=== PATIENT | female | born 1945 | race Caucasian/White ===

== ENCOUNTER 2018-04-13 01:23 | Inpatient (IN) ==
[2018-04-13 01:39] LABS: Baso # (Auto) 0.1 th/mm3 (0.0-0.2); Baso % (Auto) 0.8 % (0.0-2.0); Hemoglobin 12.7 gm/dL (11.6-15.3); Lymph # (Auto) 0.7 th/mm3 (1.0-4.8); Lymph % (Auto) 8.8 % (9.0-44.0); Mean Corpuscular HGB Conc 35.1 % (32.0-36.0); Mean Corpuscular Hemoglobin 40.4 pg (27.0-34.0); Mean Corpuscular Volume 115.2 fL (80.0-100.0); Mean Platelet Volume 8.2 fL (7.0-11.0); Mono # (Auto) 0.7 th/mm3 (0.0-0.9); Mono % (Auto) 7.8 % (0.0-8.0); Neut % (Auto) 82.6 % (16.0-70.0); Platelet Count 145 th/mm3 (150-450); Red Blood Count 3.13 mil/mm3 (4.00-5.30); Red Cell Distribution Width 16.3 % (11.6-17.2); White Blood Count 8.5 th/mm3 (4.0-11.0)
[2018-04-13] MEDS: Sod Chloride 0.9% Inj 1,000 ML IV.CONT SCH ×2 (01:46→15:08)
--- NOTE | 2018-04-13 01:47 | XR ---
EXAM DATE: 04/13/2018 1:43 AM EST AGE/SEX: 72 years / Female INDICATIONS: altered mental status, possible stroke. CLINICAL DATA: This is the patient's initial encounter. Patient reports that signs and symptoms have been present for 1 day and indicates a pain score of Nonresponsive. MEDICAL/SURGICAL HISTORY: Non-responsive. Non-responsive. COMPARISON: No prior exams available for comparison. FINDINGS: A single AP view of the chest demonstrates the lungs to be symmetrically aerated without evidence of mass, infiltrate or effusion. The cardiomediastinal contours are unremarkable. Osseous structures a re intact. Large hiatal hernia. CONCLUSION: Unremarkable single view the chest. Large hiatal hernia. Electronically signed by: Flako Funes MD 04/13/2018 1:46 AM EST
[2018-04-13 01:50] LABS: Activated Partial Thrombo Time 23.8 sec (23.4-31.7); Prothrombin Time 10.6 sec (9.8-11.6)
--- NOTE | 2018-04-13 01:53 | ED ---
HPI General Chief Complaint: Stroke Alert Stated Complaint: Stroke Alert Time Seen by Provider: 04/13/18 01:28 Source: EMS Mode of arrival: EMS Limitations: altered mental status History of Present Illness HPI Narrative: 72-year-old female came to the emergency room with history of speech problems since early afternoon yesterday as per the . However 1 hour prior to EMS arrival is when she started having difficulty speaking. EMS called a stroke alert at the field given her aphasia. Patient is awake but looks confused. She is not following commands and based on this and extremely poor historian. The exact time of onset of her speech issue is unknown at this point. It sounds like it was growing for a few hours since the early afternoon yesterday. Patient was hypertensive upon arrival. She did not appear in any pain or distress. Related Data Home Medications Medication Instructions Recorded Confirmed buspirone 5 mg PO TID 04/13/18 04/13/18 conjugated estrogens [Premarin] 0.625 mg PO DAILY 04/13/18 04/13/18 omeprazole 20 mg PO DAILY 04/13/18 04/13/18 quetiapine 50 mg PO HS 04/13/18 04/13/18 rosuvastatin 20 mg PO DAILY 04/13/18 04/13/18 Allergies Allergy/AdvReac Type Severity Reaction Status Date / Time Sulfa (Sulfonamide Allergy Unknown Rash, Verified 04/14/18 10:57 Antibiotics) Generalized Review of Systems ROS Unobtainable ROS Unobtainable: unobtainable due to mental status ROS: all other systems reviewed are negative [facility] Medical History Medical History GERD (gastroesophageal reflux disease) (Acute) High cholesterol (Acute) Social History Social History Substance History: No History of Abuse Second Hand Smoke Exposure: No Smoking Status: Never smoker How Often Do You Have a Drink Containing Alcohol: 4 or more times a week Recent Travel in [facility] within the Last 8 Weeks: No Recent Out of Country Travel within the Last 8 Weeks: No Immunization History Tetanus Immunization: Unable to Assess Exam Narrative Exam Narrative: GENERAL: Awake, elderly, confused, disheveled, no obvious distress SKIN: Focused skin assessment warm/dry. HEAD: Atraumatic. Normocephalic. EYES: Pupils equal and round. No scleral icterus. No injection or drainage. ENT: No nasal bleeding or discharge. Mucous membranes pink and moist. NECK: Trachea midline. No JVD. CARDIOVASCULAR: Regular rate and rhythm. No murmur appreciated. RESPIRATORY: No accessory muscle use. Clear to auscultation. Breath sounds equal bilaterally. GASTROINTESTINAL: Abdomen soft, non-tender, nondistended. Hepatic and splenic margins not palpable. MUSCULOSKELETAL: No obvious deformities. No clubbing. No cyanosis. No edema. NEUROLOGICAL: Confused, few occasional words that are out of context with clear speech, not following commands, moving all 4 extremities with equal strength. Based on this the NIH stroke score is 6. PSYCHIATRIC: Appropriate mood and affect; insight and judgment normal. Course Initial Documented Vital Signs Pulse Oximetry 98 04/13/18 01:23 Last Documented Vital Signs Temperature 97.8 F 04/15/18 00:00 Pulse Rate 94 H 04/15/18 00:00 Respiratory Rate 20 04/15/18 00:00 Blood Pressure 151/71 H 04/15/18 00:00 Pulse Oximetry 96 04/15/18 00:00 Critical Care Time Critical Care Time: Yes Total Critical Care Time: 30 Attestation: Aggregate critical care time was 30 minutes. Time to perform other separately billable procedures was not included in the critical care time. My time did not include minutes spent treating any other patients simultaneously or on activities that did not directly contribute to the patient's treatment. The services I provided to this patient were to treat and/or prevent clinically significant deterioration that could result in: Stroke alert, sepsis, sepsis protocol I provided critical care services requiring my management, as noted below: Chart data review, documentation time, medication orders and management, vital sign assessments/reviewing monitor data, ordering and reviewing lab tests, ordering and interpreting/reviewing x-rays and diagnostic studies, care of the patient and discussion of the patient with the admitting physicians. NIH Stroke Scale NIH Stroke Scale Level of Consciousness: 0-Alert Orientation Questions: 2-Neither task correct Responds to Commands: 2-Neither task correct Gaze Eye Movement: 0-Horizontal movement WNL Visual Marsh: 0-No visual field defect Facial Movement: 0-Normal Motor Functions Arm LEFT: 0-No drift Motor Functions Arm RIGHT: 0-No drift Motor Functions Leg LEFT: 0-No drift Motor Functions Leg RIGHT: 0-No drift Limb Ataxia: 0-No ataxia Sensory Loss: 0-No sensory loss Best Language: 2-Severe aphasia Articulation: 0-Normal Extinction or Inattention Sensory: 0-Absent Total: 6 Medical Decision Making MDM Narrative Medical decision making narrative: 1:52 AM stroke alert was called based on the on the field stroke alert is called by EMS. After patient's arrival and examining her I discussed with Dr. St who is on-call for neurology. Given the fact that this has been going on for more than 6 hours she does not meet TPA criteria. He agreed with the CAT scan and CTA at this point and based on the result admission and then neurology consultation. Patient is over at CT. Awaiting for the test to be done and resulted. 2:[address] scan of the brain was negative. The CTA is suggestive of slightly less perfusion in the left MCA territory compared to the right without any obvious stenosis. Have ordered for 325 mg of aspirin. Patient will be admitted. Lactic acid was elevated to 3.1. UA is pending. I will order a dose of Zosyn and vancomycin to cover for sepsis for the time being. 2:53 AM that has been just came in and has provided valuable descriptive information. He says that yesterday entire afternoon she was having slurred speech. At night before calling EMS he noticed that she was shaking and looked like she was having a seizure. He also says that patient has been drinking substantially for past few weeks. She drinks a bottle of wine at least a day. She has also been abusing her BuSpar as per him. He withheld her alcohol as of yesterday and she has not had more than 1-2 glasses of wine. Also she was admitted for the exact same reason which was slurred speech about a month back in [place]. They have moved down from [place] few days ago. As per the they had run all kinds of tests and they were all within normal limits. Patient was diagnosed with TIA prior to her discharge. Given this information there is a possibility that patient had a withdrawal seizure from alcohol. The is quite concerned about her drinking habit and would like some help. I have let the hospitalist know about this. Medical Screen Exam Complete: Yes Emergency Medical Condition: Yes Lab Data Result diagrams: 04/14/18 10:05 04/14/18 10:05 Lab Results 11/17/18 11/17/18 11/17/18 Range/Units 01:31 01:31 01:31 WBC 8.5 (4.0-11.0) th/mm3 RBC 3.13 L (4.00-5.30) mil/mm3 Hgb 12.7 (11.6-15.3) gm/dL POC Hgb (Calc) 13.3 (11.6-15.3) g/dL Hct 36.0 (35.0-46.0) % POC Hct 39.0 (35-46.0) % MCV 115.2 H (80.0-100.0) fL MCH 40.4 H (27.0-34.0) pg MCHC 35.1 (32.0-36.0) % RDW 16.3 (11.6-17.2) % Plt Count 145 L (150-450) th/mm3 MPV 8.2 (7.0-11.0) fL Neut % (Auto) 82.6 H (16.0-70.0) % Lymph % (Auto) 8.8 L (9.0-44.0) % [place] % (Auto) 7.8 (0.0-8.0) % Eos % (Auto) 0.0 (0.0-4.0) % Baso % (Auto) 0.8 (0.0-2.0) % Neut # (Auto) 7.0 (1.8-7.7) th/mm3 Lymph # (Auto) 0.7 L (1.0-4.8) th/mm3 [place] # (Auto) 0.7 (0.0-0.9) th/mm3 Eos # (Auto) 0.0 (0.0-0.4) th/mm3 Baso # (Auto) 0.1 (0.0-0.2) th/mm3 WBC Differential . Differential Comment Auto diff final ESR (0-30) mm/hr PT 10.6 (9.8-11.6) sec INR 1.0 Ratio APTT 23.8 (23.4-31.7) sec Fibrinogen 341 (227-377) mg/dL POC Sodium 130 L (137-144) mmol/L Sodium (136-145) meq/L POC Potassium 4.4 (3.6-5.0) mmol/L Potassium (3.5-5.1) meq/L POC Chloride 92 L (102-111) mmol/L Chloride (98-107) meq/L Carbon Dioxide (21.0-32.0) meq/L Anion Gap (5-15) meq/L POC BUN 13 (5-21) mg/dL BUN (7-18) mg/dL Creatinine (0.50-1.00) mg/dL POC Creatinine 0.9 (0.6-1.3) mg/dL Estimated GFR (>89) mL/min POC Glucose 146 H (68-110) mg/dL Random Glucose (74-106) mg/dL Hemoglobin A1c (4.3-6.0) % Lactic Acid (0.4-2.0) mmol/L Calcium (8.5-10.1) mg/dL Magnesium (1.5-2.5) mg/dL Total Bilirubin (0.2-1.0) mg/dL AST (15-37) U/L ALT (10-53) U/L Alkaline Phosphatase (45-117) U/L Ammonia (11-32) mcmol/L Total Creatine Kinase 82 (26-192) U/L Troponin I Less than 0.02 L (0.02-0.05) ng/mL C-Reactive Protein (0.00-0.30) mg/dL Total Protein (6.4-8.2) g/dL Albumin (3.4-5.0) g/dL Triglycerides (42-150) mg/dL Cholesterol (120-200) mg/dL LDL Cholesterol, Calc (0-99) mg/dL HDL Cholesterol (40.0-60.0) mg/dL Cholesterol/HDL Ratio Ratio Vitamin B12 (193-986) pg/mL TSH (0.358-3.740) uIU/mL Beta HCG, Quant Less than 1 (0-5) mIU/mL Urine Color (Yellw/Straw) Urine Clarity (Clear) Urine pH (5.0-8.5) Ur Specific [place] (1.002-1.035) Urine Protein (Neg-Trace) mg/dL Urine Glucose (UA) (Negative) mg/dL Urine Ketones (Negative) mg/dL Urine Occult Blood (Negative) Urine Nitrate (Negative) Urine Bilirubin (Negative) Urine Urobilinogen (Less than 2) mg/dL Ur Leukocyte Esterase (Negative) Urine RBC (0-3) /hpf Ur Squamous Epith Cells (0-5) /hpf Urine Mucus (Occasional) /lpf Micro UA Comment Ur Microscopic Review Urine Culture Comments Urine Opiates Screen (Neg) Ur Barbiturates Screen (Neg) Ur Amphetamines Screen (Neg) U Benzodiazepines Scrn (Neg) Urine Cocaine Screen (Neg) U Cannabinoids Screen (Neg) Serum Alcohol Less than 3 (0-5) mg/dL Blood Type Blood Type Recheck Antibody Screen 04/13/18 04/13/18 04/13/18 Range/Units 01:31 01:42 01:42 WBC (4.0-11.0) th/mm3 RBC (4.00-5.30) mil/mm3 Hgb (11.6-15.3) gm/dL POC Hgb (Calc) (11.6-15.3) g/dL Hct (35.0-46.0) % POC Hct (35-46.0) % MCV (80.0-100.0) fL MCH (27.0-34.0) pg MCHC (32.0-36.0) % RDW (11.6-17.2) % Plt Count (150-450) th/mm3 MPV (7.0-11.0) fL Neut % (Auto) (16.0-70.0) % Lymph % (Auto) (9.0-44.0) % [place] % (Auto) (0.0-8.0) % Eos % (Auto) (0.0-4.0) % Baso % (Auto) (0.0-2.0) % Neut # (Auto) (1.8-7.7) th/mm3 Lymph # (Auto) (1.0-4.8) th/mm3 [place] # (Auto) (0.0-0.9) th/mm3 Eos # (Auto) (0.0-0.4) th/mm3 Baso # (Auto) (0.0-0.2) th/mm3 WBC Differential Differential Comment ESR (0-30) mm/hr PT (9.8-11.6) sec INR Ratio APTT (23.4-31.7) sec Fibrinogen (227-377) mg/dL POC Sodium (137-144) mmol/L Sodium (136-145) meq/L POC Potassium (3.6-5.0) mmol/L Potassium (3.5-5.1) meq/L POC Chloride (102-111) mmol/L Chloride (98-107) meq/L Carbon Dioxide (21.0-32.0) meq/L Anion Gap (5-15) meq/L POC BUN (5-21) mg/dL BUN (7-18) mg/dL Creatinine (0.50-1.00) mg/dL POC Creatinine (0.6-1.3) mg/dL Estimated GFR (>89) mL/min POC Glucose (68-110) mg/dL Random Glucose (74-106) mg/dL Hemoglobin A1c (4.3-6.0) % Lactic Acid 3.1 H (0.4-2.0) mmol/L Calcium (8.5-10.1) mg/dL Magnesium (1.5-2.5) mg/dL Total Bilirubin (0.2-1.0) mg/dL AST (15-37) U/L ALT (10-53) U/L Alkaline Phosphatase (45-117) U/L Ammonia (11-32) mcmol/L Total Creatine Kinase (26-192) U/L Troponin I (0.02-0.05) ng/mL C-Reactive Protein (0.00-0.30) mg/dL Total Protein (6.4-8.2) g/dL Albumin (3.4-5.0) g/dL Triglycerides (42-150) mg/dL Cholesterol (120-200) mg/dL LDL Cholesterol, Calc (0-99) mg/dL HDL Cholesterol (40.0-60.0) mg/dL Cholesterol/HDL Ratio Ratio Vitamin B12 (193-986) pg/mL TSH (0.358-3.740) uIU/mL Beta HCG, Quant (0-5) mIU/mL Urine Color (Yellw/Straw) Urine Clarity (Clear) Urine pH (5.0-8.5) Ur Specific [place] (1.002-1.035) Urine Protein (Neg-Trace) mg/dL Urine Glucose (UA) (Negative) mg/dL Urine Ketones (Negative) mg/dL Urine Occult Blood (Negative) Urine Nitrate (Negative) Urine Bilirubin (Negative) Urine Urobilinogen (Less than 2) mg/dL Ur Leukocyte Esterase (Negative) Urine RBC (0-3) /hpf Ur Squamous Epith Cells (0-5) /hpf Urine Mucus (Occasional) /lpf Micro UA Comment Ur Microscopic Review Urine Culture Comments Urine Opiates Screen (Neg) Ur Barbiturates Screen (Neg) Ur Amphetamines Screen (Neg) U Benzodiazepines Scrn (Neg) Urine Cocaine Screen (Neg) U Cannabinoids Screen (Neg) Serum Alcohol Cancelled (0-5) mg/dL Blood Type O Positive Blood Type Recheck Required Antibody Screen Negative 04/13/18 04/13/18 04/13/18 Range/Units 02:10 02:10 06:31 WBC (4.0-11.0) th/mm3 RBC (4.00-5.30) mil/mm3 Hgb (11.6-15.3) gm/dL POC Hgb (Calc) (11.6-15.3) g/dL Hct (35.0-46.0) % POC Hct (35-46.0) % MCV (80.0-100.0) fL MCH (27.0-34.0) pg MCHC (32.0-36.0) % RDW (11.6-17.2) % Plt Count (150-450) th/mm3 MPV (7.0-11.0) fL Neut % (Auto) (16.0-70.0) % Lymph % (Auto) (9.0-44.0) % [place] % (Auto) (0.0-8.0) % Eos % (Auto) (0.0-4.0) % Baso % (Auto) (0.0-2.0) % Neut # (Auto) (1.8-7.7) th/mm3 Lymph # (Auto) (1.0-4.8) th/mm3 [place] # (Auto) (0.0-0.9) th/mm3 Eos # (Auto) (0.0-0.4) th/mm3 Baso # (Auto) (0.0-0.2) th/mm3 WBC Differential Differential Comment ESR (0-30) mm/hr PT (9.8-11.6) sec INR Ratio APTT (23.4-31.7) sec Fibrinogen (227-377) mg/dL POC Sodium (137-144) mmol/L Sodium (136-145) meq/L POC Potassium (3.6-5.0) mmol/L Potassium (3.5-5.1) meq/L POC Chloride (102-111) mmol/L Chloride (98-107) meq/L Carbon Dioxide (21.0-32.0) meq/L Anion Gap (5-15) meq/L POC BUN (5-21) mg/dL BUN (7-18) mg/dL Creatinine (0.50-1.00) mg/dL POC Creatinine (0.6-1.3) mg/dL Estimated GFR (>89) mL/min POC Glucose 160 H (68-110) mg/dL Random Glucose (74-106) mg/dL Hemoglobin A1c (4.3-6.0) % Lactic Acid (0.4-2.0) mmol/L Calcium (8.5-10.1) mg/dL Magnesium (1.5-2.5) mg/dL Total Bilirubin (0.2-1.0) mg/dL AST (15-37) U/L ALT (10-53) U/L Alkaline Phosphatase (45-117) U/L Ammonia (11-32) mcmol/L Total Creatine Kinase (26-192) U/L Troponin I (0.02-0.05) ng/mL C-Reactive Protein (0.00-0.30) mg/dL Total Protein (6.4-8.2) g/dL Albumin (3.4-5.0) g/dL Triglycerides (42-150) mg/dL Cholesterol (120-200) mg/dL LDL Cholesterol, Calc (0-99) mg/dL HDL Cholesterol (40.0-60.0) mg/dL Cholesterol/HDL Ratio Ratio Vitamin B12 (193-986) pg/mL TSH (0.358-3.740) uIU/mL Beta HCG, Quant (0-5) mIU/mL Urine Color Yellow (Yellw/Straw) Urine Clarity Clear (Clear) Urine pH 7.0 (5.0-8.5) Ur Specific [place] 1.038 H (1.002-1.035) Urine Protein 100 H (Neg-Trace) mg/dL Urine Glucose (UA) 50 (Negative) mg/dL Urine Ketones 20 (Negative) mg/dL Urine Occult Blood Negative (Negative) Urine Nitrate Negative (Negative) Urine Bilirubin Negative (Negative) Urine Urobilinogen 2.0 H (Less than 2) mg/dL Ur Leukocyte Esterase Negative (Negative) Urine RBC Less than 1 (0-3) /hpf Ur Squamous Epith Cells 1 (0-5) /hpf Urine Mucus Few H (Occasional) /lpf Micro UA Comment Cath-culture not ind Ur Microscopic Review Not Reportable Urine Culture Comments Cath-cult not ind Urine Opiates Screen Neg (Neg) Ur Barbiturates Screen Neg (Neg) Ur Amphetamines Screen Neg (Neg) U Benzodiazepines Scrn Neg (Neg) Urine Cocaine Screen Neg (Neg) U Cannabinoids Screen Neg (Neg) Serum Alcohol (0-5) mg/dL Blood Type Blood Type Recheck Antibody Screen 04/13/18 04/13/18 04/13/18 Range/Units 08:12 08:14 11:51 WBC (4.0-11.0) th/mm3 RBC (4.00-5.30) mil/mm3 Hgb (11.6-15.3) gm/dL POC Hgb (Calc) (11.6-15.3) g/dL Hct (35.0-46.0) % POC Hct (35-46.0) % MCV (80.0-100.0) fL MCH (27.0-34.0) pg MCHC (32.0-36.0) % RDW (11.6-17.2) % Plt Count (150-450) th/mm3 MPV (7.0-11.0) fL Neut % (Auto) (16.0-70.0) % Lymph % (Auto) (9.0-44.0) % [place] % (Auto) (0.0-8.0) % Eos % (Auto) (0.0-4.0) % Baso % (Auto) (0.0-2.0) % Neut # (Auto) (1.8-7.7) th/mm3 Lymph # (Auto) (1.0-4.8) th/mm3 [place] # (Auto) (0.0-0.9) th/mm3 Eos # (Auto) (0.0-0.4) th/mm3 Baso # (Auto) (0.0-0.2) th/mm3 WBC Differential Differential Comment ESR (0-30) mm/hr PT (9.8-11.6) sec INR Ratio APTT (23.4-31.7) sec Fibrinogen (227-377) mg/dL POC Sodium (137-144) mmol/L Sodium (136-145) meq/L POC Potassium (3.6-5.0) mmol/L Potassium (3.5-5.1) meq/L POC Chloride (102-111) mmol/L Chloride (98-107) meq/L Carbon Dioxide (21.0-32.0) meq/L Anion Gap (5-15) meq/L POC BUN (5-21) mg/dL BUN (7-18) mg/dL Creatinine (0.50-1.00) mg/dL POC Creatinine (0.6-1.3) mg/dL Estimated GFR (>89) mL/min POC Glucose 131 H 119 H (68-110) mg/dL Random Glucose (74-106) mg/dL Hemoglobin A1c (4.3-6.0) % Lactic Acid 1.8 (0.4-2.0) mmol/L Calcium (8.5-10.1) mg/dL Magnesium (1.5-2.5) mg/dL Total Bilirubin (0.2-1.0) mg/dL AST (15-37) U/L ALT (10-53) U/L Alkaline Phosphatase (45-117) U/L Ammonia (11-32) mcmol/L Total Creatine Kinase (26-192) U/L Troponin I (0.02-0.05) ng/mL C-Reactive Protein (0.00-0.30) mg/dL Total Protein (6.4-8.2) g/dL Albumin (3.4-5.0) g/dL Triglycerides (42-150) mg/dL Cholesterol (120-200) mg/dL LDL Cholesterol, Calc (0-99) mg/dL HDL Cholesterol (40.0-60.0) mg/dL Cholesterol/HDL Ratio Ratio Vitamin B12 (193-986) pg/mL TSH (0.358-3.740) uIU/mL Beta HCG, Quant (0-5) mIU/mL Urine Color (Yellw/Straw) Urine Clarity (Clear) Urine pH (5.0-8.5) Ur Specific [place] (1.002-1.035) Urine Protein (Neg-Trace) mg/dL Urine Glucose (UA) (Negative) mg/dL Urine Ketones (Negative) mg/dL Urine Occult Blood (Negative) Urine Nitrate (Negative) Urine Bilirubin (Negative) Urine Urobilinogen (Less than 2) mg/dL Ur Leukocyte Esterase (Negative) Urine RBC (0-3) /hpf Ur Squamous Epith Cells (0-5) /hpf Urine Mucus (Occasional) /lpf Micro UA Comment Ur Microscopic Review Urine Culture Comments Urine Opiates Screen (Neg) Ur Barbiturates Screen (Neg) Ur Amphetamines Screen (Neg) U Benzodiazepines Scrn (Neg) Urine Cocaine Screen (Neg) U Cannabinoids Screen (Neg) Serum Alcohol (0-5) mg/dL Blood Type Blood Type Recheck Antibody Screen 04/13/18 04/13/18 04/13/18 Range/Units 14:03 14:03 14:03 WBC (4.0-11.0) th/mm3 RBC (4.00-5.30) mil/mm3 Hgb (11.6-15.3) gm/dL POC Hgb (Calc) (11.6-15.3) g/dL Hct (35.0-46.0) % POC Hct (35-46.0) % MCV (80.0-100.0) fL MCH (27.0-34.0) pg MCHC (32.0-36.0) % RDW (11.6-17.2) % Plt Count (150-450) th/mm3 MPV (7.0-11.0) fL Neut % (Auto) (16.0-70.0) % Lymph % (Auto) (9.0-44.0) % [place] % (Auto) (0.0-8.0) % Eos % (Auto) (0.0-4.0) % Baso % (Auto) (0.0-2.0) % Neut # (Auto) (1.8-7.7) th/mm3 Lymph # (Auto) (1.0-4.8) th/mm3 [place] # (Auto) (0.0-0.9) th/mm3 Eos # (Auto) (0.0-0.4) th/mm3 Baso # (Auto) (0.0-0.2) th/mm3 WBC Differential Differential Comment ESR 31 H (0-30) mm/hr PT (9.8-11.6) sec INR Ratio APTT (23.4-31.7) sec Fibrinogen (227-377) mg/dL POC Sodium (137-144) mmol/L Sodium (136-145) meq/L POC Potassium (3.6-5.0) mmol/L Potassium (3.5-5.1) meq/L POC Chloride (102-111) mmol/L Chloride (98-107) meq/L Carbon Dioxide (21.0-32.0) meq/L Anion Gap (5-15) meq/L POC BUN (5-21) mg/dL BUN (7-18) mg/dL Creatinine (0.50-1.00) mg/dL POC Creatinine (0.6-1.3) mg/dL Estimated GFR (>89) mL/min POC Glucose (68-110) mg/dL Random Glucose (74-106) mg/dL Hemoglobin A1c (4.3-6.0) % Lactic Acid (0.4-2.0) mmol/L Calcium (8.5-10.1) mg/dL Magnesium (1.5-2.5) mg/dL Total Bilirubin (0.2-1.0) mg/dL AST (15-37) U/L ALT (10-53) U/L Alkaline Phosphatase (45-117) U/L Ammonia 14 (11-32) mcmol/L Total Creatine Kinase (26-192) U/L Troponin I (0.02-0.05) ng/mL C-Reactive Protein 0.56 H (0.00-0.30) mg/dL Total Protein (6.4-8.2) g/dL Albumin (3.4-5.0) g/dL Triglycerides (42-150) mg/dL Cholesterol (120-200) mg/dL LDL Cholesterol, Calc (0-99) mg/dL HDL Cholesterol (40.0-60.0) mg/dL Cholesterol/HDL Ratio Ratio Vitamin B12 555 (193-986) pg/mL TSH 1.390 (0.358-3.740) uIU/mL Beta HCG, Quant (0-5) mIU/mL Urine Color (Yellw/Straw) Urine Clarity (Clear) Urine pH (5.0-8.5) Ur Specific [place] (1.002-1.035) Urine Protein (Neg-Trace) mg/dL Urine Glucose (UA) (Negative) mg/dL Urine Ketones (Negative) mg/dL Urine Occult Blood (Negative) Urine Nitrate (Negative) Urine Bilirubin (Negative) Urine Urobilinogen (Less than 2) mg/dL Ur Leukocyte Esterase (Negative) Urine RBC (0-3) /hpf Ur Squamous Epith Cells (0-5) /hpf Urine Mucus (Occasional) /lpf Micro UA Comment Ur Microscopic Review Urine Culture Comments Urine Opiates Screen (Neg) Ur Barbiturates Screen (Neg) Ur Amphetamines Screen (Neg) U Benzodiazepines Scrn (Neg) Urine Cocaine Screen (Neg) U Cannabinoids Screen (Neg) Serum Alcohol (0-5) mg/dL Blood Type Blood Type Recheck Antibody Screen 04/13/18 04/13/18 04/14/18 Range/Units 16:44 20:45 07:15 WBC (4.0-11.0) th/mm3 RBC (4.00-5.30) mil/mm3 Hgb (11.6-15.3) gm/dL POC Hgb (Calc) (11.6-15.3) g/dL Hct (35.0-46.0) % POC Hct (35-46.0) % MCV (80.0-100.0) fL MCH (27.0-34.0) pg MCHC (32.0-36.0) % RDW (11.6-17.2) % Plt Count (150-450) th/mm3 MPV (7.0-11.0) fL Neut % (Auto) (16.0-70.0) % Lymph % (Auto) (9.0-44.0) % [place] % (Auto) (0.0-8.0) % Eos % (Auto) (0.0-4.0) % Baso % (Auto) (0.0-2.0) % Neut # (Auto) (1.8-7.7) th/mm3 Lymph # (Auto) (1.0-4.8) th/mm3 [place] # (Auto) (0.0-0.9) th/mm3 Eos # (Auto) (0.0-0.4) th/mm3 Baso # (Auto) (0.0-0.2) th/mm3 WBC Differential Differential Comment ESR (0-30) mm/hr PT (9.8-11.6) sec INR Ratio APTT (23.4-31.7) sec Fibrinogen (227-377) mg/dL POC Sodium (137-144) mmol/L Sodium (136-145) meq/L POC Potassium (3.6-5.0) mmol/L Potassium (3.5-5.1) meq/L POC Chloride (102-111) mmol/L Chloride (98-107) meq/L Carbon Dioxide (21.0-32.0) meq/L Anion Gap (5-15) meq/L POC BUN (5-21) mg/dL BUN (7-18) mg/dL Creatinine (0.50-1.00) mg/dL POC Creatinine (0.6-1.3) mg/dL Estimated GFR (>89) mL/min POC Glucose 119 H 124 H 83 (68-110) mg/dL Random Glucose (74-106) mg/dL Hemoglobin A1c (4.3-6.0) % Lactic Acid (0.4-2.0) mmol/L Calcium (8.5-10.1) mg/dL Magnesium (1.5-2.5) mg/dL Total Bilirubin (0.2-1.0) mg/dL AST (15-37) U/L ALT (10-53) U/L Alkaline Phosphatase (45-117) U/L Ammonia (11-32) mcmol/L Total Creatine Kinase (26-192) U/L Troponin I (0.02-0.05) ng/mL C-Reactive Protein (0.00-0.30) mg/dL Total Protein (6.4-8.2) g/dL Albumin (3.4-5.0) g/dL Triglycerides (42-150) mg/dL Cholesterol (120-200) mg/dL LDL Cholesterol, Calc (0-99) mg/dL HDL Cholesterol (40.0-60.0) mg/dL Cholesterol/HDL Ratio Ratio Vitamin B12 (193-986) pg/mL TSH (0.358-3.740) uIU/mL Beta HCG, Quant (0-5) mIU/mL Urine Color (Yellw/Straw) Urine Clarity (Clear) Urine pH (5.0-8.5) Ur Specific [place] (1.002-1.035) Urine Protein (Neg-Trace) mg/dL Urine Glucose (UA) (Negative) mg/dL Urine Ketones (Negative) mg/dL Urine Occult Blood (Negative) Urine Nitrate (Negative) Urine Bilirubin (Negative) Urine Urobilinogen (Less than 2) mg/dL Ur Leukocyte Esterase (Negative) Urine RBC (0-3) /hpf Ur Squamous Epith Cells (0-5) /hpf Urine Mucus (Occasional) /lpf Micro UA Comment Ur Microscopic Review Urine Culture Comments Urine Opiates Screen (Neg) Ur Barbiturates Screen (Neg) Ur Amphetamines Screen (Neg) U Benzodiazepines Scrn (Neg) Urine Cocaine Screen (Neg) U Cannabinoids Screen (Neg) Serum Alcohol (0-5) mg/dL Blood Type Blood Type Recheck Antibody Screen 04/14/18 04/14/18 04/14/18 Range/Units 10:05 10:05 10:05 WBC 6.6 (4.0-11.0) th/mm3 RBC 2.91 L (4.00-5.30) mil/mm3 Hgb 11.9 (11.6-15.3) gm/dL POC Hgb (Calc) (11.6-15.3) g/dL Hct 33.6 L (35.0-46.0) % POC Hct (35-46.0) % MCV 115.4 H (80.0-100.0) fL MCH 40.8 H (27.0-34.0) pg MCHC 35.4 (32.0-36.0) % RDW 16.4 (11.6-17.2) % Plt Count 131 L (150-450) th/mm3 MPV 8.9 (7.0-11.0) fL Neut % (Auto) 81.6 H (16.0-70.0) % Lymph % (Auto) 8.1 L (9.0-44.0) % [place] % (Auto) 9.0 H (0.0-8.0) % Eos % (Auto) 0.4 (0.0-4.0) % Baso % (Auto) 0.9 (0.0-2.0) % Neut # (Auto) 5.3 (1.8-7.7) th/mm3 Lymph # (Auto) 0.5 L (1.0-4.8) th/mm3 [place] # (Auto) 0.6 (0.0-0.9) th/mm3 Eos # (Auto) 0.0 (0.0-0.4) th/mm3 Baso # (Auto) 0.1 (0.0-0.2) th/mm3 WBC Differential . Differential Comment Auto diff final ESR (0-30) mm/hr PT (9.8-11.6) sec INR Ratio APTT (23.4-31.7) sec Fibrinogen (227-377) mg/dL POC Sodium (137-144) mmol/L Sodium 138 (136-145) meq/L POC Potassium (3.6-5.0) mmol/L Potassium 2.8 L* (3.5-5.1) meq/L POC Chloride (102-111) mmol/L Chloride 101 (98-107) meq/L Carbon Dioxide 23.7 (21.0-32.0) meq/L Anion Gap 13 (5-15) meq/L POC BUN (5-21) mg/dL BUN 10 (7-18) mg/dL Creatinine 0.96 (0.50-1.00) mg/dL POC Creatinine (0.6-1.3) mg/dL Estimated GFR 57 L (>89) mL/min POC Glucose (68-110) mg/dL Random Glucose 91 (74-106) mg/dL Hemoglobin A1c 5.2 (4.3-6.0) % Lactic Acid (0.4-2.0) mmol/L Calcium 8.7 (8.5-10.1) mg/dL Magnesium 1.5 (1.5-2.5) mg/dL Total Bilirubin 1.1 H (0.2-1.0) mg/dL AST 71 H (15-37) U/L ALT 53 (10-53) U/L Alkaline Phosphatase 123 H (45-117) U/L Ammonia (11-32) mcmol/L Total Creatine Kinase (26-192) U/L Troponin I (0.02-0.05) ng/mL C-Reactive Protein (0.00-0.30) mg/dL Total Protein 6.5 (6.4-8.2) g/dL Albumin 3.2 L (3.4-5.0) g/dL Triglycerides 115 (42-150) mg/dL Cholesterol 179 (120-200) mg/dL LDL Cholesterol, Calc 82 (0-99) mg/dL HDL Cholesterol 74.5 H (40.0-60.0) mg/dL Cholesterol/HDL Ratio 2.40 Ratio Vitamin B12 (193-986) pg/mL TSH (0.358-3.740) uIU/mL Beta HCG, Quant (0-5) mIU/mL Urine Color (Yellw/Straw) Urine Clarity (Clear) Urine pH (5.0-8.5) Ur Specific [place] (1.002-1.035) Urine Protein (Neg-Trace) mg/dL Urine Glucose (UA) (Negative) mg/dL Urine Ketones (Negative) mg/dL Urine Occult Blood (Negative) Urine Nitrate (Negative) Urine Bilirubin (Negative) Urine Urobilinogen (Less than 2) mg/dL Ur Leukocyte Esterase (Negative) Urine RBC (0-3) /hpf Ur Squamous Epith Cells (0-5) /hpf Urine Mucus (Occasional) /lpf Micro UA Comment Ur Microscopic Review Urine Culture Comments Urine Opiates Screen (Neg) Ur Barbiturates Screen (Neg) Ur Amphetamines Screen (Neg) U Benzodiazepines Scrn (Neg) Urine Cocaine Screen (Neg) U Cannabinoids Screen (Neg) Serum Alcohol (0-5) mg/dL Blood Type Blood Type Recheck Antibody Screen 04/14/18 04/14/18 04/14/18 Range/Units 10:05 12:04 16:09 WBC (4.0-11.0) th/mm3 RBC (4.00-5.30) mil/mm3 Hgb (11.6-15.3) gm/dL POC Hgb (Calc) (11.6-15.3) g/dL Hct (35.0-46.0) % POC Hct (35-46.0) % MCV (80.0-100.0) fL MCH (27.0-34.0) pg MCHC (32.0-36.0) % RDW (11.6-17.2) % Plt Count (150-450) th/mm3 MPV (7.0-11.0) fL Neut % (Auto) (16.0-70.0) % Lymph % (Auto) (9.0-44.0) % [place] % (Auto) (0.0-8.0) % Eos % (Auto) (0.0-4.0) % Baso % (Auto) (0.0-2.0) % Neut # (Auto) (1.8-7.7) th/mm3 Lymph # (Auto) (1.0-4.8) th/mm3 [place] # (Auto) (0.0-0.9) th/mm3 Eos # (Auto) (0.0-0.4) th/mm3 Baso # (Auto) (0.0-0.2) th/mm3 WBC Differential Differential Comment ESR (0-30) mm/hr PT (9.8-11.6) sec INR Ratio APTT (23.4-31.7) sec Fibrinogen (227-377) mg/dL POC Sodium (137-144) mmol/L Sodium (136-145) meq/L POC Potassium (3.6-5.0) mmol/L Potassium (3.5-5.1) meq/L POC Chloride (102-111) mmol/L Chloride (98-107) meq/L Carbon Dioxide (21.0-32.0) meq/L Anion Gap (5-15) meq/L POC BUN (5-21) mg/dL BUN (7-18) mg/dL Creatinine (0.50-1.00) mg/dL POC Creatinine (0.6-1.3) mg/dL Estimated GFR (>89) mL/min POC Glucose 115 H 98 (68-110) mg/dL Random Glucose (74-106) mg/dL Hemoglobin A1c (4.3-6.0) % Lactic Acid (0.4-2.0) mmol/L Calcium (8.5-10.1) mg/dL Magnesium Cancelled (1.5-2.5) mg/dL Total Bilirubin (0.2-1.0) mg/dL AST (15-37) U/L ALT (10-53) U/L Alkaline Phosphatase (45-117) U/L Ammonia (11-32) mcmol/L Total Creatine Kinase (26-192) U/L Troponin I (0.02-0.05) ng/mL C-Reactive Protein (0.00-0.30) mg/dL Total Protein (6.4-8.2) g/dL Albumin (3.4-5.0) g/dL Triglycerides (42-150) mg/dL Cholesterol (120-200) mg/dL LDL Cholesterol, Calc (0-99) mg/dL HDL Cholesterol (40.0-60.0) mg/dL Cholesterol/HDL Ratio Ratio Vitamin B12 (193-986) pg/mL TSH (0.358-3.740) uIU/mL Beta HCG, Quant (0-5) mIU/mL Urine Color (Yellw/Straw) Urine Clarity (Clear) Urine pH (5.0-8.5) Ur Specific [place] (1.002-1.035) Urine Protein (Neg-Trace) mg/dL Urine Glucose (UA) (Negative) mg/dL Urine Ketones (Negative) mg/dL Urine Occult Blood (Negative) Urine Nitrate (Negative) Urine Bilirubin (Negative) Urine Urobilinogen (Less than 2) mg/dL Ur Leukocyte Esterase (Negative) Urine RBC (0-3) /hpf Ur Squamous Epith Cells (0-5) /hpf Urine Mucus (Occasional) /lpf Micro UA Comment Ur Microscopic Review Urine Culture Comments Urine Opiates Screen (Neg) Ur Barbiturates Screen (Neg) Ur Amphetamines Screen (Neg) U Benzodiazepines Scrn (Neg) Urine Cocaine Screen (Neg) U Cannabinoids Screen (Neg) Serum Alcohol (0-5) mg/dL Blood Type Blood Type Recheck Antibody Screen Imaging Data Radiologist's impression: Chest X-Ray 04/13/18 01:28 CONCLUSION: Unremarkable single view the chest. Large hiatal hernia. Head CT 04/13/18 01:28 CONCLUSION: 1. There is diffuse atrophy. No evidence of acute stroke, hemorrhage, mass or mass effect Report was called by [ Dr. Funes to Dr. Louann Schaeffer at 0158 hours] Head CTA 04/13/18 01:28 CONCLUSION: 1. No obvious aneurysm or stenosis. No visible thrombus. The perfusion to the left middle cerebral circulation is decreased compared to the right Report was called by [Dr. Funes to Dr. St at 0224 hrs.] Neck CTA 04/13/18 01:28 CONCLUSION: 1. Eccentric atherosclerotic disease without two-dimensional stenosis Head MRI 04/14/18 00:00 CONCLUSION: 1. White matter atrophic changes. No acute abnormality seen and no abnormal enhancement is noted. ECG Data Attestation: I personally reviewed and interpreted this ECG as follows: Interpretation: Twelve-lead EKG was reviewed by me. Normal sinus rhythm, normal axis, nonspecific ST-T wave changes. Heart rate of 87 bpm. Discharge Plan Discharge Disposition Patient Disposition: 30 Still Patient Physicians Team ED Provider: Jay Schaeffer Primary Care Provider: Primary Care Shira Slater Attending Provider: Yolis Zamorano Other Providers: Charli St Status ED Status: Left Department Discharge Information Discharge Date/Time: 04/13/18 03:42
--- NOTE | 2018-04-13 02:03 | CT ---
EXAM DATE: 04/13/2018 1:56 AM EST AGE/SEX: 72 years / Female INDICATIONS: Stroke alert; confusion and slurred speech. CLINICAL DATA: This is the patient's initial encounter. Patient reports that signs and symptoms have been present for 1 day and indicates a pain score of Nonresponsive. MEDICAL/SURGICAL HISTORY: Non-responsive. Non-responsive. RADIATION DOSE: 52.83 CTDI (mGy) COMPARISON: No prior exams available for comparison. TECHNIQUE: CT of the head without contrast. Using automated exposure control and adjustment of the mA and/or kV according to patient size, radiation dose was kept as low as reasonably achievable to ob tain optimal diagnostic quality images. DICOM format image data is available electronically for revi ew and comparison. FINDINGS: Cerebrum: The ventricles are normal for age. No evidence of midline shift, mass lesion, hemorrhage or acute infarction. No extraaxial fluid collections are seen. Posterior Fossa: The cerebellum and brainstem are intact. The 4th ventricle is midline. The cerebe llopontine angle is unremarkable. Extracranial: The visualized portion of the orbits is intact. Skull: The calvaria is intact. No evidence of skull fracture. CONCLUSION: 1. There is diffuse atrophy. No evidence of acute stroke, hemorrhage, mass or mass effect Report was called by [ Dr. Funes to Dr. Louann Schaeffer at 0158 hours] Electronically signed by: Flako Funes MD 04/13/2018 2:01 AM EST
[2018-04-13 02:05] LABS: Creatine Kinase 82 U/L (26-192)
--- NOTE | 2018-04-13 02:21 | CT ---
EXAM DATE: 04/13/2018 2:14 AM EST AGE/SEX: 72 years / Female INDICATIONS: Stroke alert; confusion and slurred speech. CLINICAL DATA: This is the patient's initial encounter. Patient reports that signs and symptoms have been present for 1 day and indicates a pain score of Nonresponsive. MEDICAL/SURGICAL HISTORY: Non-responsive. Non-responsive. RADIATION DOSE: 10.62 CTDI (mGy) ; Combined studies COMPARISON: No prior exams available for comparison. TECHNIQUE: Volumetric scanning was performed using a multirow detector CT scanner during bolus infus ion of 99 ml Visipaque 320 (iodixanol) nonionic water-soluble contrast as a cumulative dose for mult iple exams. The data was postprocessed with a variety of visualization algorithms including full-vo lume maximum intensity projection, multiplanar sliding thin-slab reformation, curved-planar reformati on, and surface-rendering techniques. Using automated exposure control and adjustment of the mA and/ or kV according to patient size, radiation dose was kept as low as reasonably achievable to obtain op timal diagnostic quality images. DICOM format image data is available electronically for review and comparison. FINDINGS: Aortic Arch: There is a three-vessel origin of the great vessels from the aorta. No evidence of ost ial narrowing Right Carotid: The common carotid artery is intact. The carotid bulb has a normal configuration wit hout ulceration or narrowing. The internal carotid artery lumen is smooth without stenosis. The ext ernal carotid artery is intact. Left Carotid: The common carotid artery is intact. The carotid bulb has a normal configuration with out ulceration or narrowing. The internal carotid artery lumen is smooth without stenosis. The exte rnal carotid artery is intact. Vertebrals: The vertebral arteries have a mildly asymmetric diameter, the left lung may be dominant. No stenotic lesions are seen. Percent stenosis is calculated using the diameter of the stenotic region over the diameter of the nor mal distal internal carotid artery. CONCLUSION: 1. Eccentric atherosclerotic disease without two-dimensional stenosis Electronically signed by: Flako Funes MD 04/13/2018 2:20 AM EST
--- NOTE | 2018-04-13 02:27 | CT ---
EXAM DATE: 04/13/2018 2:15 AM EST AGE/SEX: 72 years / Female INDICATIONS: Stroke alert; CLINICAL DATA: This is the patient's initial encounter. Patient reports that signs and symptoms have been present for 1 day and indicates a pain score of Nonresponsive. MEDICAL/SURGICAL HISTORY: Non-responsive. Non-responsive. RADIATION DOSE: 10.62 CTDI (mGy) ; Combined studies COMPARISON: [facility] [place]/O [place]AST, 04/13/2018. [facility] [place]K [place] CONTRAST W 3D, 04/13/2018. . TECHNIQUE: Volumetric scanning was performed using a multi-row detector CT scanner during bolus infu marc of 99 ml Visipaque 320 (iodixanol) nonionic water-soluble contrast as a cumulative dose for mul tiple exams. The data was post processed with a variety of visualization algorithms including full volume maximum intensity projection, multi-planar sliding thin slab reformation, curved planar reform ation, and surface rendering techniques. Using automated exposure control and adjustment of the mA a nd/or kV according to patient size, radiation dose was kept as low as reasonably achievable to obtain optimal diagnostic quality images. DICOM format image data is available electronically for review a nd comparison. FINDINGS: There is excellent visualization of the major intracranial arteries out to the second-order branch ve ssels. There is no evidence for aneurysm, vessel truncation or stenosis, and no evidence for vascula r malformation. The vessels in the right middle cerebral circulation are more prominent on the left and I don't see a n obvious obstructive left middle clot or obstructing thrombus. CONCLUSION: 1. No obvious aneurysm or stenosis. No visible thrombus. The perfusion to the left middle cerebral c irculation is decreased compared to the right Report was called by [Dr. Funes to Dr. St at 0224 hrs.] Electronically signed by: Flako Funes MD 04/13/2018 2:25 AM EST
[2018-04-13] MEDS ORDERED: Aspirin 325 MG Tablet PO ONE (02:31)
[2018-04-13] MEDS ORDERED: Dextrose 50% in Water 50 ML Vial IV.PUSH PRN (02:37)
[2018-04-13] MEDS ORDERED: Piperacil/Tazo 4.5 GM Premix 4.5 GM/100 ML BAG IV.SIG ONE (02:39)
[2018-04-13] MEDS ORDERED: Vancomycin Inj 1,000 MG in Sodium Chlor 0.9% Inj 250 ML IV.SIG ONE (02:39)
[2018-04-13 02:59] LABS: Bilirubin,Urine Negative (Negative); Clarity,Urine Clear (Clear); Color,Urine Yellow (Yellw/Straw); Glucose,Urine (UA) 50 mg/dL (Negative); Leukocyte Esterase,Urine Negative (Negative); Mucus,Urine Few /lpf (Occasional); Nitrite,Urine Negative (Negative); Specific Gravity,Urine 1.038 (1.002-1.035); Squamous Epithelial Cell,Urine 1 /hpf (0-5)
[2018-04-13 03:05] LABS: Amphetamine Screen,Urine Neg (Neg); Barbiturate Screen,Urine Neg (Neg); Cannabinoid Screen,Urine Neg (Neg); Cocaine Screen,Urine Neg (Neg)
[2018-04-13] MEDS ORDERED: Haloperidol Inj 5 MG/ML Ampul IV.PUSH PRN (03:08)
[2018-04-13 03:16] LABS: Opiate Screen,Urine Neg (Neg)
--- NOTE | 2018-04-13 03:37 | P.HPIM ---
History of Present Illness Primary Care Physician: No Primary Care Physician History of Present Illness: This is a 72-year-old female with a PMH of HTN, Hyperlipidemia, Anxiety and Alcohol Abuse who was brought to the ER by EMS as a Stroke Alert for aphasia. Per at bedside, pt had intermittent episodes of aphasia throughout the day, had recommended eval, however pt refused at that time. Later this evening, notes pt had generalized shaking episode w/ "eyes rolling in back of her head", lasting few minutes, no incontinence. Upon arrival to ER, pt has had significant confusion, and combative requiring restraints. Upon further discussion w/ , he states pt does have h/o Alcohol Abuse, drinks one 750ml bottle of wine daily, yesterday only had 2 glasses of wine. denies h/o seizures, but believes she is "withdrawing". reports pt is prescribed Buspar 5mg 1-2 tablets tid, however she takes approx 45mg throughout the day, states "she's addicted to alcohol and Buspar". Pt currently more awake , speaking, but confused, not answering questions appropriately. reports pt had similar episode of "TIA" but no seizure activity in [place] 2 months ago, states she has been following w/ Neurologist (Dr. Crbatree) in [place] for possible MS. BP 210/118, HR 94, O2 sat 96% on 2L NC, Afebrile. CBC essentially unremarkable except for MCV 115. Platelets 145. INR 1.0. Chemistry unremarkable. Lactic Acid 3.1. Troponin negative. UA negative for UTI. Urine Drug Screen negative. Alcohol negative. CXR unremarkable. CT Head diffuse atrophy. CTA Head w/ left MCA perfusion decreased in comparison to right. CTA Neck w/ no acute stenosis. - Diagnosis (1) CVA (cerebral vascular accident) (2) HTN (hypertension) (3) Seizure (4) Lactic acidosis (5) Alcohol abuse Review of Systems PAST FAMILY HISTORY: Reviewed. 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 - Medical History Medical History: Medical History (Last Reviewed 04/13/18 @ 01:51 by Jay Schaeffer MD) GERD (gastroesophageal reflux disease) High cholesterol - Tobacco History Smoking Status: Unknown if ever smoked - Alcohol History How Often Do You Have a Drink Containing Alcohol: Unable to Obtain - Substance Use History Substance History: Unable to Obtain - Travel History Recent Travel in the [place] Within the Last 8 Weeks: No Recent Travel Out of the Country Within the Last 8 Weeks: No - Immunization History Tetanus Immunization: Unable to Assess Medications and Allergies Active Medications: Active Medications Aspirin (Aspirin Supp) 300 mg RECTAL DAILY WALTER Dextrose (D50w Vial) 50 ml IV.PUSH UNSCH PRN PRN Reason: PER HYPOGLYCEMIA PROTOCOL Enalaprilat (Vasotec Inj) 1.25 mg IV.PUSH Q4H PRN PRN Reason: For SBP > 220 or DBP > 120 Flumazenil (Romazecon Inj) 0.2 mg IV.PUSH Q1M PRN PRN Reason: OVERSEDATION Folic Acid (Folic Acid) 1 mg PO DAILY WALTER Stop: 04/18/18 08:59 Glucagon (Glucagon Inj) 1 mg OTHER UNSCH PRN PRN Reason: for Hypoglycemia Protocol Haloperidol Lactate (Haldol Inj) 1 mg IV.PUSH Q15M PRN PRN Reason: for severe agitation Sodium Chloride (Ns Inj) 1,000 mls @ 70 mls/hr IV.CONT .[id number] WALTER Last Admin: 04/13/18 01:46 Dose: 70 mls/hr Vancomycin HCl 1,000 mg/ (Sodium Chloride) 250 mls @ 250 mls/hr IV.SIG ONCE ONE Stop: 04/13/18 03:38 Thiamine HCl 100 mg/ Sodium (Chloride) 101 mls @ 100 mls/hr IV.SIG DAILY WALTER Stop: 04/16/18 08:59 Insulin Aspart (Novolog Insulin Correctional Sugar Inj) 0 unit SQ ACHS WALTER; Protocol Lorazepam (Ativan) 1 mg PO Q4H PRN PRN Reason: for CIWA 8-10 Lorazepam (Ativan) 2 mg PO Q2H PRN PRN Reason: for CIWA 11-14 Lorazepam (Ativan Inj) 2 mg IV.PUSH Q2H PRN PRN Reason: for CIWA 11-14 Lorazepam (Ativan Inj) 2 mg IV.PUSH Q1H PRN PRN Reason: for CIWA 15-20 Lorazepam (Ativan Inj) 2 mg IV.PUSH Q15M PRN PRN Reason: for CIWA > 20 Lorazepam (Ativan Inj) 1 mg IV.PUSH Q4H PRN PRN Reason: for CIWA 8-10 Multivitamins/Minerals (Theragran-M) 1 tab PO DAILY WALTER Stop: 04/18/18 08:59 Sodium Chloride (Ns Flush) 2 ml IV.FLUSH BID WALTER Sodium Chloride (Ns Flush) 2 ml IV.FLUSH PRN PRN PRN Reason: FLUSH AFTER USING IV ACCESS Thiamine HCl (Vitamin B1) 100 mg PO DAILY WALTER Allergies Allergy/AdvReac Type Severity Reaction Status Date / Time No Allergy Information Allergy Unverified 04/13/18 01:28 Available Home Medications Medication Instructions Recorded Confirmed Type buspirone 5 mg PO TID 04/13/18 04/13/18 History conjugated estrogens [Premarin] 0.625 mg PO DAILY 04/13/18 04/13/18 History omeprazole 20 mg PO DAILY 04/13/18 04/13/18 History quetiapine 50 mg PO HS 04/13/18 04/13/18 History rosuvastatin 20 mg PO DAILY 04/13/18 04/13/18 History Exam Vital signs: Vital Signs 04/13/18 01:23 04/13/18 01:28 04/13/18 01:45 Temperature Pulse Rate 92 H 94 H Respiratory Rate 22 20 Blood Pressure 169/118 H 210/118 H Pulse Oximetry 98 98 96 04/13/18 01:51 04/13/18 02:30 Temperature 98 F Pulse Rate 82 Respiratory Rate 16 Blood Pressure 160/81 H Pulse Oximetry 96 97 Intake & Output 04/12/18 04/12/18 04/13/18 06:59 18:59 06:59 Weight 49.3 kg Narrative: PE: GENERAL: Elderly white female in no acute distress, confused, in restraints, speaking but not answering questions appropriately. SKIN: Focused skin assessment warm and dry. HEENT: PERRLA, EOMI. No scleral icterus or conjunctival pallor. No lid lag or facial droop. CARDIOVASCULAR: Regular rate and rhythm. No obvious murmurs to auscultation. No chest tenderness to palpation. RESPIRATORY: No obvious rhonchi or wheezing. Clear to auscultation. Breath sounds equal bilaterally. GASTROINTESTINAL: Abdomen soft, non-tender, nondistended. BS normal. MUSCULOSKELETAL: Extremities without clubbing, cyanosis, or edema. No obvious deformities. NEUROLOGICAL: Awake, alert, confused. No focal neurologic deficits. Moving both upper and lower extremities spontaneously. PSYCHIATRIC: Appropriate mood and affect. Insight and judgment normal. Results - Labs CBC & Chem 7: 04/13/18 01:31 Labs: Short CBC 04/13/18 Range/Units 01:31 WBC 8.5 (4.0-11.0) th/mm3 Hgb 12.7 (11.6-15.3) gm/dL Hct 36.0 (35.0-46.0) % Plt Count 145 L (150-450) th/mm3 Cardiac Enzymes 04/13/18 Range/Units 01:31 Total Creatine Kinase 82 (26-192) U/L Troponin I Less than 0.02 L (0.02-0.05) ng/mL Urine 04/13/18 Range/Units 02:10 Urine Color Yellow (Yellw/Straw) Urine Clarity Clear (Clear) Urine pH 7.0 (5.0-8.5) Ur Specific [place] 1.038 H (1.002-1.035) Urine Protein 100 H (Neg-Trace) mg/dL Urine Glucose (UA) 50 (Negative) mg/dL - Imaging Impressions Chest X-Ray 04/13/18 01:28 CONCLUSION: Unremarkable single view the chest. Large hiatal hernia. Head CT 04/13/18 01:28 CONCLUSION: 1. There is diffuse atrophy. No evidence of acute stroke, hemorrhage, mass or mass effect Report was called by [ Dr. Funes to Dr. Louann Schaeffer at 0158 hours] Head CTA 04/13/18 01:28 CONCLUSION: 1. No obvious aneurysm or stenosis. No visible thrombus. The perfusion to the left middle cerebral circulation is decreased compared to the right Report was called by [Dr. Funes to Dr. St at 0224 hrs.] Neck CTA 04/13/18 01:28 CONCLUSION: 1. Eccentric atherosclerotic disease without two-dimensional stenosis Caprini VTE Risk Assessment Caprini VTE Risk Assessment: No/Low Risk (score <= 1) Caprini Risk Assessment Model: Point Value = 1 Point Value = 2 Point Value = 3 Point Value = 5 Age 41-60 Minor surgery BMI > 25 kg/m2 Swollen legs Varicose veins or History of unexplained or recurrent spontaneous Oral contraceptives or hormone replacement Sepsis (< 1 month) Serious lung disease, including pneumonia (< 1 month) Abnormal pulmonary function Acute myocardial infarction Congestive heart failure (< 1 month) History of inflammatory bowel disease Medical patient at bed rest Age 61-74 Arthroscopic surgery Major open surgery (> 45 min) Laparoscopic surgery (> 45 min) Malignancy Confined to bed (> 72 hours) Immobilizing plaster cast Central venous access Age >= 75 History of VTE Family history of VTE Factor V Leiden Prothrombin [id number] Lupus anticoagulant Anticardiolipin antibodies Elevated serum homocysteine Heparin-induced thrombocytopenia Other congenital or acquired thrombophilia Stroke (< 1 month) Elective arthroplasty Hip, pelvis, or leg fracture Acute spinal cord injury (< 1 month) Prophylaxis Regimen: Total Risk Factor Score Risk Level Prophylaxis Regimen 0-1 Low Early ambulation 2 Moderate Order ONE of the following: *Sequential Compression Device (SCD) *Heparin 5000 units SQ BID 3-4 Higher Order ONE of the following medications: *Heparin 5000 units SQ TID *Enoxaparin/Lovenox 40 mg SQ daily (WT < 150 kg, CrCl > 30 mL/min) *Enoxaparin/Lovenox 30 mg SQ daily (WT < 150 kg, CrCl > 10-29 mL/min) *Enoxaparin/Lovenox 30 mg SQ BID (WT < 150 kg, CrCl > 30 mL/min) AND/OR *Sequential Compression Device (SCD) 5 or more Highest Order ONE of the following medications: *Heparin 5000 units SQ TID (Preferred with Epidurals) *Enoxaparin/Lovenox 40 mg SQ daily (WT < 150 kg, CrCl > 30 mL/min) *Enoxaparin/Lovenox 30 mg SQ daily (WT < 150 kg, CrCl > 10-29 mL/min) *Enoxaparin/Lovenox 30 mg SQ BID (WT < 150 kg, CrCl > 30 mL/min) AND *Sequential Compression Device (SCD) Assessment and Plan - Assessment (1) CVA (cerebral vascular accident) Code(s): I63.9 - Cerebral infarction, unspecified Status: Acute (2) HTN (hypertension) Code(s): I10 - Essential (primary) hypertension Status: Acute (3) Seizure Code(s): R56.9 - Unspecified convulsions Status: Acute (4) Lactic acidosis Code(s): E87.2 - Acidosis Status: Acute (5) Alcohol abuse Code(s): F10.10 - Alcohol abuse, uncomplicated Status: Acute - Plan A/P: 1. CVA: brought to ER as Stroke Alert for acute aphasia, previous episode of similar symptoms 2 months ago in [place], states told she had a "TIA". CT Head negative, CTA Head w/ left MCA perfusion decreased in comparison to right, CTA Neck negative, images reviewed. Symptoms likely secondary to alcohol withdrawal w/ seizure rather than CVA. Will continue w/ Neuro Checks, HOB flat, NPO, IVF, MRI, Consult Neurology for further evaluation. 2. Seizure: reports seizure-like activity, apparent post-ictal state w / aphasia, now verbal but confused, not answering questions appropriately, likely due to Alcohol Withdrawal, drinks one 750ml bottle of wine daily, last drink yesterday had 2 glasses, Alcohol negative. Check EEG, Seizure Precautions , CIWA 3. Lactic Acidosis: Lactic Acid 3.1, likely secondary to dehydration/seizure, no evidence of infection, CXR w/ no acute findings, images reviewed, U/a negative for UTI. IVF, repeat lactic acid. 4. Alcohol Abuse: w/ Acute Alcohol Withdrawal, drinks one bottle wine per day , Alcohol level negative, CIWA, Seizure Precautions, MVT/Thiamine/Folate replacement. 5. DVT Prophylaxis: SCD/Teds 6. Social work for d/c planning as needed. 7. Case discussed w/ ER physician at length, labs/records/imaging reviewed by me.
[2018-04-13] MEDS: Insulin NovoLOG Aspart Correctional Sugar Inj SQ SCH ×4 (08:15→21:00)
[2018-04-13] MEDS: Folic Acid 1 MG Tablet PO SCH (08:16)
[2018-04-13] MEDS: Aspirin 300 MG Supp RECTAL SCH (08:17)
[2018-04-13] MEDS: Multivitamin/Minerals Therapeutic Tablet PO SCH (08:17)
[2018-04-13] MEDS: Thiamine Inj 100 MG in Sodium Chlor 0.9% Inj 100 ML IV.SIG SCH (09:06)
--- NOTE | 2018-04-13 09:18 | P.PNIM ---
Subjective Interval history: Follow-up visit possible seizure versus CVA. Patient seen and examined today. Patient severely confused states that her name is Priscilla states that it is 1930s and she is not and does not know where she is at. Denies pain and discomfort. Denies SOB/ dyspnea. Denies chest pain, palpitations, headaches, dizziness. Denies fevers, chills, n/v/d. Denies dysuria. Denies blurry vision, double vision, unilateral weakness Physical Exam Vital signs: Vital Signs 04/13/18 01:23 04/13/18 01:28 04/13/18 01:45 Temperature Pulse Rate 92 H 94 H Respiratory Rate 22 20 Blood Pressure 169/118 H 210/118 H Pulse Oximetry 98 98 96 04/13/18 01:51 04/13/18 02:30 04/13/18 04:00 Temperature 98 F 97.8 F Pulse Rate 82 84 Respiratory Rate 16 16 Blood Pressure 160/81 H 149/65 H Pulse Oximetry 96 97 97 04/13/18 08:00 Temperature 98.1 F Pulse Rate 82 Respiratory Rate 18 Blood Pressure 119/69 Pulse Oximetry 98 Intake & Output 04/12/18 04/13/18 04/13/18 18:59 06:59 18:59 Intake Total 100 / 100 Balance 100 / 100 Weight 49.3 kg Intake: IV 100 / 100 Zosyn 4.5 GM Premix 4.5 gm In 100 / 100 100 ml @ 200 mls/hr IV.SIG ONCE ONE Rx#:[id number] Other: # Voids 0 Narrative: GENERAL: This is thin appearing elderly, well-developed patient, in no apparent distress. SKIN: Warm and dry. HEENT: Normocephalic. Pupils equal round and reactive. Nose without bleeding. Airway patent. NECK: Trachea midline. CARDIOVASCULAR: Regular rate and rhythm without murmurs, gallops, or rubs. RESPIRATORY: Clear to auscultation. Breath sounds equal bilaterally. No wheezes , rales, or rhonchi. GASTROINTESTINAL: Abdomen soft, non-tender, nondistended. Bowel Sounds normoactive x4. MUSCULOSKELETAL: Extremities without clubbing, cyanosis, or edema. NEUROLOGICAL: Awake and alert. Moves all extremities. Normal speech. Confuse. Restless at times. - Urinary Catheter Management Straight Cath placed during this visit: yes Reason for continuing: Not indwelling catheter Insertion date: 04/13/18 Insertion time: 02:14 Results - Labs CBC & Chem 7: 04/13/18 01:31 Laboratory Results - last 24 hr 04/13/18 04/13/18 04/13/18 01:31 01:31 01:31 WBC 8.5 RBC 3.13 L Hgb 12.7 POC Hgb (Calc) 13.3 Hct 36.0 POC Hct 39.0 MCV 115.2 H MCH 40.4 H MCHC 35.1 RDW 16.3 Plt Count 145 L MPV 8.2 Neut % (Auto) 82.6 H Lymph % (Auto) 8.8 L [place] % (Auto) 7.8 Eos % (Auto) 0.0 Baso % (Auto) 0.8 Neut # (Auto) 7.0 Lymph # (Auto) 0.7 L [place] # (Auto) 0.7 Eos # (Auto) 0.0 Baso # (Auto) 0.1 WBC Differential . Differential Comment Auto diff final PT 10.6 INR 1.0 APTT 23.8 Fibrinogen 341 POC Sodium 130 L POC Potassium 4.4 POC Chloride 92 L POC BUN 13 POC Creatinine 0.9 POC Glucose 146 H Lactic Acid Total Creatine Kinase 82 Troponin I Less than 0.02 L Beta HCG, Quant Less than 1 Urine Color Urine Clarity Urine pH Ur Specific [place] Urine Protein Urine Glucose (UA) Urine Ketones Urine Occult Blood Urine Nitrate Urine Bilirubin Urine Urobilinogen Ur Leukocyte Esterase Urine RBC Ur Squamous Epith Cells Urine Mucus Micro UA Comment Ur Microscopic Review Urine Culture Comments Urine Opiates Screen Ur Barbiturates Screen Ur Amphetamines Screen U Benzodiazepines Scrn Urine Cocaine Screen U Cannabinoids Screen Serum Alcohol Less than 3 Blood Type Blood Type Recheck Antibody Screen 04/13/18 04/13/18 04/13/18 01:31 01:42 01:42 WBC RBC Hgb POC Hgb (Calc) Hct POC Hct MCV MCH MCHC RDW Plt Count MPV Neut % (Auto) Lymph % (Auto) [place] % (Auto) Eos % (Auto) Baso % (Auto) Neut # (Auto) Lymph # (Auto) [place] # (Auto) Eos # (Auto) Baso # (Auto) WBC Differential Differential Comment PT INR APTT Fibrinogen POC Sodium POC Potassium POC Chloride POC BUN POC Creatinine POC Glucose Lactic Acid 3.1 H Total Creatine Kinase Troponin I Beta HCG, Quant Urine Color Urine Clarity Urine pH Ur Specific [place] Urine Protein Urine Glucose (UA) Urine Ketones Urine Occult Blood Urine Nitrate Urine Bilirubin Urine Urobilinogen Ur Leukocyte Esterase Urine RBC Ur Squamous Epith Cells Urine Mucus Micro UA Comment Ur Microscopic Review Urine Culture Comments Urine Opiates Screen Ur Barbiturates Screen Ur Amphetamines Screen U Benzodiazepines Scrn Urine Cocaine Screen U Cannabinoids Screen Serum Alcohol Cancelled Blood Type O Positive Blood Type Recheck Required Antibody Screen Negative 04/13/18 04/13/18 04/13/18 02:10 02:10 06:31 WBC RBC Hgb POC Hgb (Calc) Hct POC Hct MCV MCH MCHC RDW Plt Count MPV Neut % (Auto) Lymph % (Auto) [place] % (Auto) Eos % (Auto) Baso % (Auto) Neut # (Auto) Lymph # (Auto) [place] # (Auto) Eos # (Auto) Baso # (Auto) WBC Differential Differential Comment PT INR APTT Fibrinogen POC Sodium POC Potassium POC Chloride POC BUN POC Creatinine POC Glucose 160 H Lactic Acid Total Creatine Kinase Troponin I Beta HCG, Quant Urine Color Yellow Urine Clarity Clear Urine pH 7.0 Ur Specific [place] 1.038 H Urine Protein 100 H Urine Glucose (UA) 50 Urine Ketones 20 Urine Occult Blood Negative Urine Nitrate Negative Urine Bilirubin Negative Urine Urobilinogen 2.0 H Ur Leukocyte Esterase Negative Urine RBC Less than 1 Ur Squamous Epith Cells 1 Urine Mucus Few H Micro UA Comment Cath-culture not ind Ur Microscopic Review Not Reportable Urine Culture Comments Cath-cult not ind Urine Opiates Screen Neg Ur Barbiturates Screen Neg Ur Amphetamines Screen Neg U Benzodiazepines Scrn Neg Urine Cocaine Screen Neg U Cannabinoids Screen Neg Serum Alcohol Blood Type Blood Type Recheck Antibody Screen 04/13/18 04/13/18 08:12 08:14 WBC RBC Hgb POC Hgb (Calc) Hct POC Hct MCV MCH MCHC RDW Plt Count MPV Neut % (Auto) Lymph % (Auto) [place] % (Auto) Eos % (Auto) Baso % (Auto) Neut # (Auto) Lymph # (Auto) [place] # (Auto) Eos # (Auto) Baso # (Auto) WBC Differential Differential Comment PT INR APTT Fibrinogen POC Sodium POC Potassium POC Chloride POC BUN POC Creatinine POC Glucose 131 H Lactic Acid 1.8 Total Creatine Kinase Troponin I Beta HCG, Quant Urine Color Urine Clarity Urine pH Ur Specific [place] Urine Protein Urine Glucose (UA) Urine Ketones Urine Occult Blood Urine Nitrate Urine Bilirubin Urine Urobilinogen Ur Leukocyte Esterase Urine RBC Ur Squamous Epith Cells Urine Mucus Micro UA Comment Ur Microscopic Review Urine Culture Comments Urine Opiates Screen Ur Barbiturates Screen Ur Amphetamines Screen U Benzodiazepines Scrn Urine Cocaine Screen U Cannabinoids Screen Serum Alcohol Blood Type Blood Type Recheck Antibody Screen - Imaging Impressions Chest X-Ray 04/13/18 01:28 CONCLUSION: Unremarkable single view the chest. Large hiatal hernia. Head CT 04/13/18 01:28 CONCLUSION: 1. There is diffuse atrophy. No evidence of acute stroke, hemorrhage, mass or mass effect Report was called by [ Dr. Funes to Dr. Louann Schaeffer at 0158 hours] Head CTA 04/13/18 01:28 CONCLUSION: 1. No obvious aneurysm or stenosis. No visible thrombus. The perfusion to the left middle cerebral circulation is decreased compared to the right Report was called by [Dr. Funes to Dr. St at 0224 hrs.] Neck CTA 04/13/18 01:28 CONCLUSION: 1. Eccentric atherosclerotic disease without two-dimensional stenosis Assessment and Plan - Assessment (1) CVA (cerebral vascular accident) Code(s): I63.9 - Cerebral infarction, unspecified Status: Acute (2) HTN (hypertension) Code(s): I10 - Essential (primary) hypertension Status: Acute (3) Seizure Code(s): R56.9 - Unspecified convulsions Status: Acute (4) Lactic acidosis Code(s): E87.2 - Acidosis Status: Acute (5) Alcohol abuse Code(s): F10.10 - Alcohol abuse, uncomplicated Status: Acute - Plan 72-year-old female with a PMH of HTN, Hyperlipidemia, Anxiety and Alcohol Abuse who was brought to the ER by EMS as a Stroke Alert for aphasia. CVA -Per review of records spelled to the ED for stroke alert for acute aphasia, previous episode of similar symptoms 2 months ago in [place]. As per she had "TIA." -CT of the head negative -CTA of the head with left MCA perfusion decrease in comparison to right -CTA of the neck negative -Head of bed flat for now. N.p.o. -MRI ordered -Neurology consulted for further evaluation. Seizure like activity -Per review of records has been reports seizure-like activity, postictal state with aphasia -now verbal but confused not oriented to self, time, place -Answers questions appropriately when asked regarding symptoms. -Per review of records patient drinks 750 mL bottle of wine daily, last drink was yesterday with 2 glasses of wine. U tox alcohol negative -Seizure precaution. -EEG. -CIWA Protocol. -Add thiamine, folate, multivitamin Lactic Acidosis -Initial Lactic Acid 3.1, likely secondary to dehydration/seizure, no evidence of infection -CXR w/ no acute findings -U/a negative for UTI. -IVF, repeat lactic acid 1.8 Hyponatremia, mild -Possibly related to alcohol use -Monitor sodium levels Hyperglycemia -Check hemoglobin A1c DVT prop SCDs Code Status: Full code Discussed Condition With: Patient, nurse Discharge Planning: DC when clinically improved and Cleared by neurology. Pending diagnostics
--- NOTE | 2018-04-13 10:05 | P.CONNEU ---
History of Present Illness Service: Neurology Primary Care Provider: No Primary Care Physician Chief Complaint: Altered mentation History of Present Illness: 72-year-old female admitted for altered mental status. Confusion altered mental status greater than 6 hours prior to arrival therefore not IV TPA candidate. In addition further information obtained from the patient's spouse from the ER physician relates the patient having an alcohol problem drinking excessive alcohol and also on multiple psychotropic medications. She had trouble with orientation and speech similar presentation and was admitted to out of state hospital apparently the workup was negative. Patient denies any headache oriented to herself denies any hallucinations denies any chest pain or dyspnea or visual loss. Review of Systems All other systems reviewed negative except as stated in HPI [facility] - History History Provided By: Exchange Teller / EMT - Medical History Medical History: Medical History (Last Reviewed 04/13/18 @ 06:49 by Steve Lopez) GERD (gastroesophageal reflux disease) High cholesterol - Tobacco History Smoking Status: Unknown if ever smoked - Alcohol History How Often Do You Have a Drink Containing Alcohol: Unable to Obtain - Substance Use History Substance History: Unable to Obtain - Travel History Recent Travel in the [place] Within the Last 8 Weeks: No Recent Travel Out of the Country Within the Last 8 Weeks: No - Immunization History Tetanus Immunization: Unable to Assess Medications and Allergies Active Medications: Active Medications Aspirin (Aspirin Supp) 300 mg RECTAL DAILY [facility] Last Admin: 04/13/18 08:17 Dose: 300 mg Dextrose (D50w Vial) 50 ml IV.PUSH UNSCH PRN PRN Reason: PER HYPOGLYCEMIA PROTOCOL Enalaprilat (Vasotec Inj) 1.25 mg IV.PUSH Q4H PRN PRN Reason: For SBP > 220 or DBP > 120 Flumazenil (Romazecon Inj) 0.2 mg IV.PUSH Q1M PRN PRN Reason: OVERSEDATION Folic Acid (Folic Acid) 1 mg PO DAILY [facility] Stop: 04/18/18 08:59 Last Admin: 04/13/18 08:16 Dose: Not Given Glucagon (Glucagon Inj) 1 mg OTHER UNSCH PRN PRN Reason: for Hypoglycemia Protocol Haloperidol Lactate (Haldol Inj) 1 mg IV.PUSH Q15M PRN PRN Reason: for severe agitation Sodium Chloride (Ns Inj) 1,000 mls @ 70 mls/hr IV.CONT .[id number] [facility] Last Admin: 11/17/18 01:46 Dose: 70 mls/hr Thiamine HCl 100 mg/ Sodium (Chloride) 101 mls @ 100 mls/hr IV.SIG DAILY [facility] Stop: 04/16/18 08:59 Last Admin: 04/13/18 09:06 Dose: 100 mls/hr Insulin Aspart (Novolog Insulin Correctional Sugar Inj) 0 unit SQ ACHS [facility]; Protocol Last Admin: 04/13/18 08:15 Dose: Not Given Lorazepam (Ativan) 1 mg PO Q4H PRN PRN Reason: for CIWA 8-10 Lorazepam (Ativan) 2 mg PO Q2H PRN PRN Reason: for CIWA 11-14 Lorazepam (Ativan Inj) 2 mg IV.PUSH Q2H PRN PRN Reason: for CIWA 11-14 Lorazepam (Ativan Inj) 2 mg IV.PUSH Q1H PRN PRN Reason: for CIWA 15-20 Lorazepam (Ativan Inj) 2 mg IV.PUSH Q15M PRN PRN Reason: for CIWA > 20 Lorazepam (Ativan Inj) 1 mg IV.PUSH Q4H PRN PRN Reason: for CIWA 8-10 Last Admin: 04/13/18 06:29 Dose: 1 mg Multivitamins/Minerals (Theragran-M) 1 tab PO DAILY [facility] Stop: 04/18/18 08:59 Last Admin: 04/13/18 08:17 Dose: Not Given Sodium Chloride (Ns Flush) 2 ml IV.FLUSH BID [facility] Last Admin: 04/13/18 08:17 Dose: 2 ml Sodium Chloride (Ns Flush) 2 ml IV.FLUSH PRN PRN PRN Reason: FLUSH AFTER USING IV ACCESS Last Admin: 04/13/18 08:16 Dose: 2 ml Thiamine HCl (Vitamin B1) 100 mg PO DAILY [facility] Allergies Allergy/AdvReac Type Severity Reaction Status Date / Time No Allergy Information Allergy Unverified 04/13/18 01:28 Available Home Medications Medication Instructions Recorded Confirmed Type buspirone 5 mg PO TID 04/13/18 04/13/18 History conjugated estrogens [Premarin] 0.625 mg PO DAILY 04/13/18 04/13/18 History omeprazole 20 mg PO DAILY 04/13/18 04/13/18 History quetiapine 50 mg PO HS 11/17/18 11/17/18 History rosuvastatin 20 mg PO DAILY 04/13/18 04/13/18 History Exam Vital signs: Vital Signs 04/13/18 01:23 04/13/18 01:28 04/13/18 01:45 Temperature Pulse Rate 92 H 94 H Respiratory Rate 22 20 Blood Pressure 169/118 H 210/118 H Pulse Oximetry 98 98 96 04/13/18 01:51 04/13/18 02:30 04/13/18 04:00 Temperature 98 F 97.8 F Pulse Rate 82 84 Respiratory Rate 16 16 Blood Pressure 160/81 H 149/65 H Pulse Oximetry 96 97 97 04/13/18 08:00 Temperature 98.1 F Pulse Rate 82 Respiratory Rate 18 Blood Pressure 119/69 Pulse Oximetry 98 Intake & Output 04/12/18 04/13/18 04/13/18 18:59 06:59 18:59 Intake Total 100 / 100 Balance 100 / 100 Weight 49.3 kg Intake: IV 100 / 100 Zosyn 4.5 GM Premix 4.5 gm In 100 / 100 100 ml @ 200 mls/hr IV.SIG ONCE ONE Rx#:[id number] Other: # Voids 0 Narrative: GENERAL: in NAD, SKIN: Warm and dry. HEAD: Atraumatic. Normocephalic. EYES: Pupils equal and round. No scleral icterus. NECK: Trachea midline. No JVD. CARDIOVASCULAR: Regular rate and rhythm. RESPIRATORY: No accessory muscle use. GASTROINTESTINAL: Abdomen soft, non-tender, nondistended. MUSCULOSKELETAL: Extremities without clubbing, cyanosis, or edema. No obvious deformities. NEUROLOGICAL: Awake and alert. Alert oriented to herself. Articulate able name simple objects did not know the name of the current president for details to medical history. Short-term memory, looks comfortable, visual clark grossly full no facial asymmetry and restraints but able to move all 4 extremity gravity no nuchal rigidity PSYCHIATRIC: Mildly anxious - Constitutional no acute distress - Routine HEENT Exam Head: Present: normocephalic Eye: Present: EOMI Results - Labs CBC & Chem 7: 04/13/18 01:31 Labs: Laboratory Results - last 24 hr 04/13/18 04/13/18 04/13/18 01:31 01:31 01:31 WBC 8.5 RBC 3.13 L Hgb 12.7 POC Hgb (Calc) 13.3 Hct 36.0 POC Hct 39.0 MCV 115.2 H MCH 40.4 H MCHC 35.1 RDW 16.3 Plt Count 145 L MPV 8.2 Neut % (Auto) 82.6 H Lymph % (Auto) 8.8 L [place] % (Auto) 7.8 Eos % (Auto) 0.0 Baso % (Auto) 0.8 Neut # (Auto) 7.0 Lymph # (Auto) 0.7 L [place] # (Auto) 0.7 Eos # (Auto) 0.0 Baso # (Auto) 0.1 WBC Differential . Differential Comment Auto diff final PT 10.6 INR 1.0 APTT 23.8 Fibrinogen 341 POC Sodium 130 L POC Potassium 4.4 POC Chloride 92 L POC BUN 13 POC Creatinine 0.9 POC Glucose 146 H Lactic Acid Total Creatine Kinase 82 Troponin I Less than 0.02 L Beta HCG, Quant Less than 1 Urine Color Urine Clarity Urine pH Ur Specific [place] Urine Protein Urine Glucose (UA) Urine Ketones Urine Occult Blood Urine Nitrate Urine Bilirubin Urine Urobilinogen Ur Leukocyte Esterase Urine RBC Ur Squamous Epith Cells Urine Mucus Micro UA Comment Ur Microscopic Review Urine Culture Comments Urine Opiates Screen Ur Barbiturates Screen Ur Amphetamines Screen U Benzodiazepines Scrn Urine Cocaine Screen U Cannabinoids Screen Serum Alcohol Less than 3 Blood Type Blood Type Recheck Antibody Screen 04/13/18 04/13/18 04/13/18 01:31 01:42 01:42 WBC RBC Hgb POC Hgb (Calc) Hct POC Hct MCV MCH MCHC RDW Plt Count MPV Neut % (Auto) Lymph % (Auto) [place] % (Auto) Eos % (Auto) Baso % (Auto) Neut # (Auto) Lymph # (Auto) [place] # (Auto) Eos # (Auto) Baso # (Auto) WBC Differential Differential Comment PT INR APTT Fibrinogen POC Sodium POC Potassium POC Chloride POC BUN POC Creatinine POC Glucose Lactic Acid 3.1 H Total Creatine Kinase Troponin I Beta HCG, Quant Urine Color Urine Clarity Urine pH Ur Specific [place] Urine Protein Urine Glucose (UA) Urine Ketones Urine Occult Blood Urine Nitrate Urine Bilirubin Urine Urobilinogen Ur Leukocyte Esterase Urine RBC Ur Squamous Epith Cells Urine Mucus Micro UA Comment Ur Microscopic Review Urine Culture Comments Urine Opiates Screen Ur Barbiturates Screen Ur Amphetamines Screen U Benzodiazepines Scrn Urine Cocaine Screen U Cannabinoids Screen Serum Alcohol Cancelled Blood Type O Positive Blood Type Recheck Required Antibody Screen Negative 04/13/18 04/13/18 04/13/18 02:10 02:10 06:31 WBC RBC Hgb POC Hgb (Calc) Hct POC Hct MCV MCH MCHC RDW Plt Count MPV Neut % (Auto) Lymph % (Auto) [place] % (Auto) Eos % (Auto) Baso % (Auto) Neut # (Auto) Lymph # (Auto) [place] # (Auto) Eos # (Auto) Baso # (Auto) WBC Differential Differential Comment PT INR APTT Fibrinogen POC Sodium POC Potassium POC Chloride POC BUN POC Creatinine POC Glucose 160 H Lactic Acid Total Creatine Kinase Troponin I Beta HCG, Quant Urine Color Yellow Urine Clarity Clear Urine pH 7.0 Ur Specific [place] 1.038 H Urine Protein 100 H Urine Glucose (UA) 50 Urine Ketones 20 Urine Occult Blood Negative Urine Nitrate Negative Urine Bilirubin Negative Urine Urobilinogen 2.0 H Ur Leukocyte Esterase Negative Urine RBC Less than 1 Ur Squamous Epith Cells 1 Urine Mucus Few H Micro UA Comment Cath-culture not ind Ur Microscopic Review Not Reportable Urine Culture Comments Cath-cult not ind Urine Opiates Screen Neg Ur Barbiturates Screen Neg Ur Amphetamines Screen Neg U Benzodiazepines Scrn Neg Urine Cocaine Screen Neg U Cannabinoids Screen Neg Serum Alcohol Blood Type Blood Type Recheck Antibody Screen 04/13/18 04/13/18 08:12 08:14 WBC RBC Hgb POC Hgb (Calc) Hct POC Hct MCV MCH MCHC RDW Plt Count MPV Neut % (Auto) Lymph % (Auto) [place] % (Auto) Eos % (Auto) Baso % (Auto) Neut # (Auto) Lymph # (Auto) [place] # (Auto) Eos # (Auto) Baso # (Auto) WBC Differential Differential Comment PT INR APTT Fibrinogen POC Sodium POC Potassium POC Chloride POC BUN POC Creatinine POC Glucose 131 H Lactic Acid 1.8 Total Creatine Kinase Troponin I Beta HCG, Quant Urine Color Urine Clarity Urine pH Ur Specific [place] Urine Protein Urine Glucose (UA) Urine Ketones Urine Occult Blood Urine Nitrate Urine Bilirubin Urine Urobilinogen Ur Leukocyte Esterase Urine RBC Ur Squamous Epith Cells Urine Mucus Micro UA Comment Ur Microscopic Review Urine Culture Comments Urine Opiates Screen Ur Barbiturates Screen Ur Amphetamines Screen U Benzodiazepines Scrn Urine Cocaine Screen U Cannabinoids Screen Serum Alcohol Blood Type Blood Type Recheck Antibody Screen - Imaging Impressions Chest X-Ray 04/13/18 01:28 CONCLUSION: Unremarkable single view the chest. Large hiatal hernia. Head CT 04/13/18 01:28 CONCLUSION: 1. There is diffuse atrophy. No evidence of acute stroke, hemorrhage, mass or mass effect Report was called by [ Dr. Funes to Dr. Louann Schaeffer at 0158 hours] Head CTA 04/13/18 01:28 CONCLUSION: 1. No obvious aneurysm or stenosis. No visible thrombus. The perfusion to the left middle cerebral circulation is decreased compared to the right Report was called by [Dr. Funes to Dr. St at 0224 hrs.] Neck CTA 04/13/18 01:28 CONCLUSION: 1. Eccentric atherosclerotic disease without two-dimensional stenosis Review/Management - Diagnosis (1) Encephalopathy acute Code(s): G93.40 - Encephalopathy, unspecified Status: Acute Current Visit: Yes (2) Mood disorder Code(s): F39 - Unspecified mood [affective] disorder Status: Acute Current Visit: Yes (3) HTN (hypertension) Code(s): I10 - Essential (primary) hypertension Status: Acute Current Visit : Yes (4) Alcohol abuse Code(s): F10.10 - Alcohol abuse, uncomplicated Status: Acute Current Visit: Yes - Review/Management Plan: Toxic, metabolic encephalopathy; possibly related to Wernicke encephalopathy, toxic medication ingestion, exclude seizure activity. TIA less likely Urine drug screen negative. Ethanol level in range. No leukocytosis no fever. Recommendation EEG MRI brain Check TSH, B12, ammonia ESR CRP IV thiamine Follow exam
--- NOTE | 2018-04-13 14:12 | ECHRPT ---
Indication: CVA/TIA CONCLUSIONS The left ventricular systolic function is hyperdynamic with an estimated ejection fraction in the ra nge of 65- 70%. Normal left ventricular size. Wall thickness is normal. No regional wall motion abnormalities are present. Mild thickening of the mitral valve leaflets. Mild mitral annular calcification. Aortic valve sclerosis is present. Trivial pulmonary valve regurgitation. BP: / HR: Rhythm: Sinus MEASUREMENTS (Male / Female) Normal Values Technical Quality:Good 2D ECHO LV Diastolic Diameter PLAX 3.7 cm 4.2 - 5.9 / 3.9 - 5.3 cm LV Systolic Diameter PLAX 2.1 cm IVS Diastolic Thickness 0.9 cm 0.6 - 1.0 / 0.6 - 0.9 cm LVPW Diastolic Thickness 0.9 cm 0.6 - 1.0 / 0.6 - 0.9 cm LV Relative Wall Thickness 0.5 RV Internal Dim ED PLAX 2.3 cm LVOT Diameter 1.5 cm LV Ejection Fraction MOD 4C 70.0 % LV Ejection Fraction 4C AL 72.1 % M-MODE Aortic Root Diameter MM 1.8 cm LA Systolic Diameter MM 3.7 cm LA Ao Ratio MM 2.1 AV Cusp Separation MM 1.5 cm DOPPLER AV Peak Velocity 163.0 cm/s AV Peak Gradient 10.6 mmHg LVOT Peak Velocity 99.2 cm/s LVOT Peak Gradient 3.9 mmHg AV Area Cont Eq pk 1.1 cm MV Area PHT 3.2 cm Mitral E Point Velocity 102.0 cm/s Mitral A Point Velocity 114.0 cm/s Mitral E to A Ratio 0.9 LV E' Lateral Velocity 5.9 cm/s Mitral E to LV E' Lateral Ratio 17.1 LV E' Septal Velocity 6.1 cm/s Mitral E to LV E' Septal Ratio 16.6 PV Peak Velocity 102.0 cm/s PV Peak Gradient 4.2 mmHg FINDINGS LEFT VENTRICLE The left ventricular systolic function is hyperdynamic with an estimated ejection fraction in the ra nge of 65- 70%. Normal left ventricular size. Wall thickness is normal. No regional wall motion abnormalities are present. Doppler parameters are consistent with impaired left ventricular relaxtion (grade 1 diastolic dysfun ction). RIGHT VENTRICLE Normal right ventricular size and systolic function. LEFT ATRIUM The left atrial size is normal. RIGHT ATRIUM The right atrial size is normal. ATRIAL SEPTUM Normal atrial septal thickness without atrial level shunting by limited color doppler interrogation. AORTA The aortic root and proximal ascending aorta are normal in size on limited imaging. MITRAL VALVE Mild thickening of the mitral valve leaflets. Mild mitral annular calcification. AORTIC VALVE Trileaflet aortic valve. Aortic valve sclerosis is present. TRICUSPID VALVE Structurally normal tricuspid valve. No tricuspid valve stenosis or regurgitation. PULMONARY VALVE Trivial pulmonary valve regurgitation. VESSELS The inferior vena cava is normal in size. PERICARDIUM No pericardial effusion. Troy Madrid MD (Electronically Signed) Final Date:13 April 2018 14:11
[2018-04-13] MEDS: LORazepam 1 MG Tablet PO PRN (14:34)
[2018-04-13 14:43] LABS: C-Reactive Protein 0.56 mg/dL (0.00-0.30)
[2018-04-13 15:08] LABS: Thyroid Stimulating Hormone 1.39 uIU/mL (0.358-3.740)
--- NOTE | 2018-04-13 15:57 | ECG ---
Date Performed: 04/13/2018 Time Performed: 01:28:41 PTAGE: 72 years EKG: Sinus rhythm POSSIBLE LEFT ATRIAL ENLARGEMENT BORDERLINE ECG NO PREVIOUS TRACING DOCTOR: Edwardo Purvis Interpretating Date/Time 04/13/2018 15:55:48
--- NOTE | 2018-04-13 20:52 | MG ---
cc: Charli St MD ELECTROENCEPHALOGRAM RECORD NUMBER: [id number]. DESCRIPTION: Significant eye movement and myogenic artifact occurring off and on. Posterior rhythm otherwise demonstrating 4-6 Hz activity in the posterior channels. Good EEG variability reactivity. No significant lateralizing features. Single lead EKG showing sinus rhythm. INTERPRETATION: Mild encephalopathy, moderate artifact. Clinical correlation. Charli St MD MG/ts , 08:25 PM , 08:28 PM
[2018-04-14] MEDS: Sod Chloride 0.9% Inj 1,000 ML IV.CONT SCH ×2 (06:25→21:36)
[2018-04-14] MEDS: Insulin NovoLOG Aspart Correctional Sugar Inj SQ SCH ×4 (07:23→21:36)
[2018-04-14] MEDS ORDERED: Gadobutrol PF 7.5 MMOL/7.5 ML Vial (for RAD) IV.SIG ONE (07:43)
--- NOTE | 2018-04-14 08:01 | MR ---
EXAM DATE: 04/14/2018 7:55 AM EST AGE/SEX: 72 years / Female INDICATIONS: Altered mental status. Seizure. CLINICAL DATA: This is the patient's initial encounter. Patient reports that signs and symptoms have been present for 2 days and indicates a pain score of 0/10. MEDICAL/SURGICAL HISTORY: Hypercholesterolemia. Hiatal hernia. Hypertension. Uterine, colon cancer. Colon resection. Hysterectomy. COMPARISON: [facility] – [place], CT HEAD W/O CONTRAST, 04/13/2018. [facility] [place], CTA HEAD W CONTRAST W 3D, 04/13/2018. . TECHNIQUE: Multiplanar, multisequence examination of the brain was performed without and with 5cc ml Gadavist (gadobutrol) contrast as a single exam dose. FINDINGS: Cerebrum: The ventricles are normal for age. No evidence of midline shift, mass lesion, hemorrhage or acute infarction. No extraaxial fluid collections are seen. The pituitary gland and suprasellar cistern are normal in configuration. White Matter: Mild bilateral periventricular white matter hyperintensity. There is volume loss ident ified within the white matter diffusely with prominence of the sulci. Posterior Fossa: The cerebellum and brainstem are intact. The 4th ventricle is midline. The cerebel lopontine angle is unremarkable. The cerebellar tonsils are normal in position. Diffusion Imaging: No focal areas of restricted diffusion are seen. No evidence of acute infarction . Extracranial: The visualized portions of the orbits and paranasal sinuses are unremarkable. Post Contrast: No abnormal areas of parenchymal or dural enhancement. No evidence of blood-brain ba rrier breakdown. CONCLUSION: 1. White matter atrophic changes. No acute abnormality seen and no abnormal enhancement is noted. Electronically signed by: Carri Rose MD 04/14/2018 7:59 AM EST
[2018-04-14] MEDS: Thiamine Inj 100 MG in Sodium Chlor 0.9% Inj 100 ML IV.SIG SCH (09:50)
[2018-04-14] MEDS: Folic Acid 1 MG Tablet PO SCH (09:50)
[2018-04-14] MEDS: Multivitamin/Minerals Therapeutic Tablet PO SCH (09:50)
[2018-04-14] MEDS: Famotidine 20 MG Tablet PO SCH ×2 (10:43→21:35)
[2018-04-14] MEDS: Aspirin 325 MG Tablet PO SCH (10:43)
--- NOTE | 2018-04-14 10:45 | P.PNIM ---
Subjective Interval history: ollow-up visit possible seizure versus CVA, HLD. Patient seen and examined today. Patient is awake and alert more coherent today. Patient knows her name , date of . Unaware of month, year. She knows that the president today is Nataliia, does not know where she is that she knows the hospital but could not tell where that. Patient is calm and able to follow commands and very responsive. States she has no appetite and asking when she is going home. Patient admits to alcohol use every day drinking wine states it has been for years that she has been doing it. Denies pain and discomfort. Denies SOB/ dyspnea. Denies chest pain, palpitations, headaches, dizziness. Denies fevers, chills, n/v/d. Denies dysuria. Denies diplopia, unilateral weakness. Physical Exam Vital signs: Vital Signs 04/13/18 11:59 04/13/18 16:00 04/13/18 16:25 Temperature 98.2 F 97.8 F Pulse Rate 71 77 Respiratory Rate 18 20 Blood Pressure 145/61 H 165/70 H Pulse Oximetry 97 95 93 L 04/13/18 19:55 04/13/18 20:00 04/13/18 21:45 Temperature 98.4 F Pulse Rate 74 91 H Respiratory Rate 20 Blood Pressure 181/81 H Pulse Oximetry 96 96 04/14/18 00:00 04/14/18 00:40 04/14/18 04:00 Temperature 98.0 F 97.8 F Pulse Rate 80 103 H 88 Respiratory Rate 20 20 Blood Pressure 162/77 H 162/75 H Pulse Oximetry 97 96 04/14/18 05:27 04/14/18 07:45 04/14/18 10:00 Temperature 98.0 F Pulse Rate 79 91 H Respiratory Rate 20 Blood Pressure 188/74 H 180/90 H Pulse Oximetry 98 Intake & Output 04/13/18 04/14/18 04/14/18 18:59 06:59 18:59 Intake Total 1701 / 1701 1300 / 1300 Balance 1701 / 1701 1300 / 1300 Weight 49 kg 56.7 kg Intake: IV 1101 / 1101 1000 / 1000 NS Inj 1,000 ML @ 70 mls/hr IV. 1000 / 1000 1000 / 1000 CONT .[id number] [facility] Rx#:[id number] Thiamine Inj 100 MG In NS Inj 101 / 101 100 ML @ 100 mls/hr IV.SIG DAILY [facility] Rx#:[id number] Oral 600 / 600 300 / 300 Other: # Incontinent Voids 3 # Urine Diapers 5 Weight On Admission 49 kg Narrative: GENERAL: This is thin appearing elderly, well-developed patient, in no apparent distress. SKIN: Warm and dry. HEENT: Normocephalic. Pupils equal round and reactive. Nose without bleeding. Airway patent. NECK: Trachea midline. CARDIOVASCULAR: Regular rate and rhythm without murmurs, gallops, or rubs. RESPIRATORY: Clear to auscultation. Breath sounds equal bilaterally. No wheezes , rales, or rhonchi. GASTROINTESTINAL: Abdomen soft, non-tender, nondistended. Bowel Sounds normoactive x4. MUSCULOSKELETAL: Extremities without clubbing, cyanosis, or edema. NEUROLOGICAL: Awake and alert. Oriented to self, president. Moves all extremities. Normal speech. Calm and pleasant. - Urinary Catheter Management Straight Cath placed during this visit: yes Reason for continuing: Not indwelling catheter Insertion date: 04/13/18 Insertion time: 02:14 Results - Labs CBC & Chem 7: 04/14/18 10:05 04/14/18 10:05 Laboratory Results - last 24 hr 04/13/18 04/13/18 04/13/18 11:51 14:03 14:03 ESR 31 H POC Glucose 119 H Ammonia 14 C-Reactive Protein Vitamin B12 TSH 04/13/18 04/13/18 04/13/18 14:03 16:44 20:45 ESR POC Glucose 119 H 124 H Ammonia C-Reactive Protein 0.56 H Vitamin B12 555 TSH 1.390 04/14/18 07:15 ESR POC Glucose 83 Ammonia C-Reactive Protein Vitamin B12 TSH Microbiology 04/13/18 01:40 Blood - Peripheral Aerobic Blood Culture - Preliminary gram positive cocci 04/13/18 01:45 Blood - Peripheral Aerobic Blood Culture - Preliminary gram positive cocci 04/13/18 01:45 Blood - Peripheral Anaerobic Blood Culture - Preliminary gram positive cocci - Imaging Impressions Head MRI 04/14/18 00:00 CONCLUSION: 1. White matter atrophic changes. No acute abnormality seen and no abnormal enhancement is noted. Assessment and Plan - Assessment (1) CVA (cerebral vascular accident) Code(s): I63.9 - Cerebral infarction, unspecified Status: Acute (2) HTN (hypertension) Code(s): I10 - Essential (primary) hypertension Status: Acute (3) Seizure Code(s): R56.9 - Unspecified convulsions Status: Acute (4) Lactic acidosis Code(s): E87.2 - Acidosis Status: Acute (5) Alcohol abuse Code(s): F10.10 - Alcohol abuse, uncomplicated Status: Acute - Plan 72-year-old female with a PMH of HTN, Hyperlipidemia, Anxiety and Alcohol Abuse who was brought to the ER by EMS as a Stroke Alert for aphasia. CVA vs toxic metabolic encephalopathy secondary to EtOH -Per review of records spelled to the ED for stroke alert for acute aphasia, previous episode of similar symptoms 2 months ago in [place]. As per she had "TIA." -CT of the head negative -CTA of the head with left MCA perfusion decrease in comparison to right -CTA of the neck negative -EEG negative for seizure activity -MRI white matter atrophic changes. No acute abnormality seen and no abnormal enhancement is noted. -Neurology consulted for further evaluation. -Patient is more awake and alert, coherent with conversation. Admits to ingesting wine daily Seizure like activity History of EtOH dependence -Per review of records has been reports seizure-like activity, postictal state with aphasia -now verbal but confused not oriented to self, time, place -Answers questions appropriately when asked regarding symptoms. -Per review of records patient drinks 750 mL bottle of wine daily, last drink was yesterday with 2 glasses of wine. -Seizure precaution. -EEG negative for any seizure activity -[facility] Protocol. -thiamine, folate, multivitamin -Admits to drinking wine daily has been for years. Lactic Acidosis -Initial Lactic Acid 3.1, likely secondary to dehydration/seizure, no evidence of infection -CXR w/ no acute findings -U/a negative for UTI. -Repeat lactic acid 1.8 -Resolved Hyponatremia, mild -Possibly related to alcohol use -Monitor sodium levels Hyperglycemia -Check hemoglobin A1c Macrocytic Anemia -Possible ETOH related -Patient states she gets Vit B12 shots monthly DVT prop SCDs CODE STATUS Full code Discussed with patient, nursing, Dr. Zamorano Discharge Planning: Pending labs. DC when cleared by neurology.
[2018-04-14 11:57] LABS: Baso # (Auto) 0.1 th/mm3 (0.0-0.2); Baso % (Auto) 0.9 % (0.0-2.0); Eos % (Auto) 0.4 % (0.0-4.0); Hematocrit 33.6 % (35.0-46.0); Hemoglobin 11.9 gm/dL (11.6-15.3); Lymph # (Auto) 0.5 th/mm3 (1.0-4.8); Lymph % (Auto) 8.1 % (9.0-44.0); Mean Corpuscular HGB Conc 35.4 % (32.0-36.0); Mean Corpuscular Hemoglobin 40.8 pg (27.0-34.0); Mean Corpuscular Volume 115.4 fL (80.0-100.0); Mean Platelet Volume 8.9 fL (7.0-11.0); Mono # (Auto) 0.6 th/mm3 (0.0-0.9); Neut # (Auto) 5.3 th/mm3 (1.8-7.7); Neut % (Auto) 81.6 % (16.0-70.0); Platelet Count 131 th/mm3 (150-450); Red Blood Count 2.91 mil/mm3 (4.00-5.30); Red Cell Distribution Width 16.4 % (11.6-17.2); White Blood Count 6.6 th/mm3 (4.0-11.0)
--- NOTE | 2018-04-14 12:07 | P.PNNEU ---
Subjective Subjective Comments: No cp, no dyspnea, no lott, no focal weakness, no vision loss. Admits to drinking more than she should states she was going through bereavement after the loss of multiple family members. Active Medications: Active Medications Aspirin (Aspirin) 325 mg PO DAILY [facility] Last Admin: 04/14/18 10:43 Dose: 325 mg Dextrose (D50w Vial) 50 ml IV.PUSH UNSCH PRN PRN Reason: PER HYPOGLYCEMIA PROTOCOL Enalaprilat (Vasotec Inj) 1.25 mg IV.PUSH Q4H PRN PRN Reason: For SBP > 220 or DBP > 120 Famotidine (Pepcid) 20 mg PO BID [facility] Last Admin: 04/14/18 10:43 Dose: 20 mg Flumazenil (Romazecon Inj) 0.2 mg IV.PUSH Q1M PRN PRN Reason: OVERSEDATION Folic Acid (Folic Acid) 1 mg PO DAILY [facility] Stop: 04/18/18 08:59 Last Admin: 04/14/18 09:50 Dose: 1 mg Glucagon (Glucagon Inj) 1 mg OTHER UNSCH PRN PRN Reason: for Hypoglycemia Protocol Haloperidol Lactate (Haldol Inj) 1 mg IV.PUSH Q15M PRN PRN Reason: for severe agitation Sodium Chloride (Ns Inj) 1,000 mls @ 70 mls/hr IV.CONT .[id number] [facility] Last Admin: 04/14/18 06:25 Dose: 70 mls/hr Thiamine HCl 100 mg/ Sodium (Chloride) 101 mls @ 100 mls/hr IV.SIG DAILY [facility] Stop: 04/16/18 08:59 Last Admin: 04/14/18 09:50 Dose: 100 mls/hr Insulin Aspart (Novolog Insulin Correctional Sugar Inj) 0 unit SQ ACHS [facility]; Protocol Last Admin: 04/14/18 07:23 Dose: Not Given Lorazepam (Ativan) 1 mg PO Q4H PRN PRN Reason: for CIWA 8-10 Last Admin: 04/13/18 14:34 Dose: 1 mg Lorazepam (Ativan) 2 mg PO Q2H PRN PRN Reason: for CIWA 11-14 Lorazepam (Ativan Inj) 2 mg IV.PUSH Q2H PRN PRN Reason: for CIWA 11-14 Lorazepam (Ativan Inj) 2 mg IV.PUSH Q1H PRN PRN Reason: for CIWA 15-20 Lorazepam (Ativan Inj) 2 mg IV.PUSH Q15M PRN PRN Reason: for CIWA > 20 Lorazepam (Ativan Inj) 1 mg IV.PUSH Q4H PRN PRN Reason: for CIWA 8-10 Last Admin: 04/14/18 07:19 Dose: 1 mg Multivitamins/Minerals (Theragran-M) 1 tab PO DAILY [facility] Stop: 04/18/18 08:59 Last Admin: 04/14/18 09:50 Dose: 1 tab Sodium Chloride (Ns Flush) 2 ml IV.FLUSH BID [facility] Last Admin: 04/14/18 10:46 Dose: 2 ml Sodium Chloride (Ns Flush) 2 ml IV.FLUSH PRN PRN PRN Reason: FLUSH AFTER USING IV ACCESS Last Admin: 04/13/18 08:16 Dose: 2 ml Thiamine HCl (Vitamin B1) 100 mg PO DAILY [facility] Allergies/Adverse Reactions: Allergies Allergy/AdvReac Type Severity Reaction Status Date / Time Sulfa (Sulfonamide Allergy Unknown Rash, Verified 04/14/18 10:57 Antibiotics) Generalized Review of Systems All other systems reviewed negative except as stated in HPI Physical Exam Vital signs: Vital Signs 04/13/18 16:00 04/13/18 16:25 04/13/18 19:55 Temperature 97.8 F Pulse Rate 77 74 Respiratory Rate 20 Blood Pressure 165/70 H Pulse Oximetry 95 93 L 04/13/18 20:00 04/13/18 21:45 04/14/18 00:00 Temperature 98.4 F 98.0 F Pulse Rate 91 H 80 Respiratory Rate 20 20 Blood Pressure 181/81 H 162/77 H Pulse Oximetry 96 96 97 04/14/18 00:40 04/14/18 04:00 04/14/18 05:27 Temperature 97.8 F Pulse Rate 103 H 88 79 Respiratory Rate 20 Blood Pressure 162/75 H Pulse Oximetry 96 04/14/18 07:45 04/14/18 10:00 04/14/18 11:50 Temperature 98.0 F 98.4 F Pulse Rate 91 H 90 Respiratory Rate 20 20 Blood Pressure 188/74 H 180/90 H 194/86 H Pulse Oximetry 98 96 Intake & Output 04/13/18 04/14/18 04/14/18 18:59 06:59 18:59 Intake Total 1701 / 1701 1300 / 1300 Balance 1701 / 1701 1300 / 1300 Weight 49 kg 56.7 kg Intake: IV 1101 / 1101 1000 / 1000 NS Inj 1,000 ML @ 70 mls/hr IV. 1000 / 1000 1000 / 1000 CONT .[id number] [facility] Rx#:[id number] Thiamine Inj 100 MG In NS Inj 101 / 101 100 ML @ 100 mls/hr IV.SIG DAILY [facility] Rx#:[id number] Oral 600 / 600 300 / 300 Other: # Incontinent Voids 3 # Urine Diapers 5 Weight On Admission 49 kg Narrative: GENERAL: in NAD, SKIN: Warm and dry. HEAD: Atraumatic. Normocephalic. EYES: Pupils equal and round. No scleral icterus. NECK: Trachea midline. No JVD. CARDIOVASCULAR: Regular rate and rhythm. RESPIRATORY: No accessory muscle use. GASTROINTESTINAL: Abdomen soft, non-tender, nondistended. MUSCULOSKELETAL: Extremities without clubbing, cyanosis, or edema. No obvious deformities. NEUROLOGICAL: Awake and alert. Oriented 2-3. Not to month or exact a new the year able name the current president issues and [facility] area. Looks comfortable, visual clark grossly full no facial asymmetry and restraints but able to move all 4 extremity gravity no nuchal rigidity, mild upper extremity tremor PSYCHIATRIC: Calm pleasant appropriate in conversation - Constitutional no acute distress - Routine HEENT Exam Head: Present: normocephalic Eye: Present: EOMI - Urinary Catheter Management Straight Cath placed during this visit: yes Reason for continuing: Not indwelling catheter Insertion date: 04/13/18 Insertion time: 02:14 Objective Laboratory Results - last 24 hr 04/13/18 04/13/18 04/13/18 14:03 14:03 14:03 WBC RBC Hgb Hct MCV MCH MCHC RDW Plt Count MPV Neut % (Auto) Lymph % (Auto) [place] % (Auto) Eos % (Auto) Baso % (Auto) Neut # (Auto) Lymph # (Auto) [place] # (Auto) Eos # (Auto) Baso # (Auto) WBC Differential Differential Comment ESR 31 H POC Glucose Ammonia 14 C-Reactive Protein 0.56 H Vitamin B12 555 TSH 1.390 04/13/18 04/13/18 04/14/18 16:44 20:45 07:15 WBC RBC Hgb Hct MCV MCH MCHC RDW Plt Count MPV Neut % (Auto) Lymph % (Auto) [place] % (Auto) Eos % (Auto) Baso % (Auto) Neut # (Auto) Lymph # (Auto) [place] # (Auto) Eos # (Auto) Baso # (Auto) WBC Differential Differential Comment ESR POC Glucose 119 H 124 H 83 Ammonia C-Reactive Protein Vitamin B12 TSH 04/14/18 10:05 WBC 6.6 RBC 2.91 L Hgb 11.9 Hct 33.6 L MCV 115.4 H MCH 40.8 H MCHC 35.4 RDW 16.4 Plt Count 131 L MPV 8.9 Neut % (Auto) 81.6 H Lymph % (Auto) 8.1 L [place] % (Auto) 9.0 H Eos % (Auto) 0.4 Baso % (Auto) 0.9 Neut # (Auto) 5.3 Lymph # (Auto) 0.5 L [place] # (Auto) 0.6 Eos # (Auto) 0.0 Baso # (Auto) 0.1 WBC Differential . Differential Comment Auto diff final ESR POC Glucose Ammonia C-Reactive Protein Vitamin B12 TSH Microbiology 04/13/18 01:40 Aerobic Blood Culture - Preliminary Blood - Peripheral gram positive cocci Anaerobic Blood Culture - Preliminary No growth in 1 day 04/13/18 01:45 Aerobic Blood Culture - Preliminary Blood - Peripheral gram positive cocci Anaerobic Blood Culture - Preliminary gram positive cocci Review/Management - Diagnosis (1) Encephalopathy acute Code(s): G93.40 - Encephalopathy, unspecified Status: Acute Current Visit: Yes (2) Mood disorder Code(s): F39 - Unspecified mood [affective] disorder Status: Acute Current Visit: Yes (3) HTN (hypertension) Code(s): I10 - Essential (primary) hypertension Status: Acute Current Visit : Yes (4) Alcohol abuse Code(s): F10.10 - Alcohol abuse, uncomplicated Status: Acute Current Visit: Yes - Review/Management Plan: Toxic, metabolic encephalopathy; possibly related to Wernicke encephalopathy, toxic medication ingestion, exclude seizure activity. TIA less likely Urine drug screen negative. Ethanol level in range. No leukocytosis no fever. Symptoms appear secondary to probable ethanol withdrawal with polypharmacy Recommendation Neuro improved. Improved mental status DC restraints as feasible EEG; negative for any seizure activity MRI brain; negative for any acute lesion Check TSH, B12, ammonia ESR CRP IV thiamine Follow exam
[2018-04-14 12:32] LABS: Hemoglobin A1c 5.2 % (4.3-6.0)
[2018-04-14 12:34] LABS: Alanine Aminotransferase 53 U/L (10-53); Albumin 3.2 g/dL (3.4-5.0); Alkaline Phosphatase 123 U/L (45-117); Anion Gap 13 meq/L (5-15); Aspartate Aminotransferase 71 U/L (15-37); Blood Urea Nitrogen 10 mg/dL (7-18); Calcium 8.7 mg/dL (8.5-10.1); Carbon Dioxide 23.7 meq/L (21.0-32.0); Chloride 101 meq/L (98-107); Cholesterol 179 mg/dL (120-200); Glomerular Filtration Rate 57 mL/min (>89); Glucose,Random 91 mg/dL (74-106); HDL Cholesterol 74.5 mg/dL (40.0-60.0); LDL Cholesterol,Calculated 82 mg/dL (0-99); Sodium 138 meq/L (136-145); Total Protein 6.5 g/dL (6.4-8.2); Triglycerides 115 mg/dL (42-150)
[2018-04-14 12:37] LABS: Potassium 2.8 meq/L (3.5-5.1)
[2018-04-14] MEDS: Aspirin 300 MG Supp RECTAL SCH (13:18)
[2018-04-14 13:32] LABS: Magnesium 1.5 mg/dL (1.5-2.5)
[2018-04-14] MEDS ORDERED: Magnesium Oxide 400 MG Tablet PO ONE (14:00)
[2018-04-14] MEDS ORDERED: Potassium Chloride 25 MEQ Effervescent Tablet PO ONE (14:42)
[2018-04-14] MEDS: amLODIPine 5 MG Tablet PO SCH (16:34)
[2018-04-14] MEDS: LORazepam 1 MG Tablet PO PRN (19:52)
[2018-04-15 06:24] LABS: Baso % (Auto) 0.6 % (0.0-2.0); Eos % (Auto) 0.8 % (0.0-4.0); Hematocrit 34.2 % (35.0-46.0); Hemoglobin 11.4 gm/dL (11.6-15.3); Lymph # (Auto) 0.7 th/mm3 (1.0-4.8); Lymph % (Auto) 11.3 % (9.0-44.0); Mean Corpuscular HGB Conc 33.5 % (32.0-36.0); Mean Corpuscular Hemoglobin 39.6 pg (27.0-34.0); Mean Corpuscular Volume 118.4 fL (80.0-100.0); Mono # (Auto) 0.6 th/mm3 (0.0-0.9); Mono % (Auto) 10.4 % (0.0-8.0); Neut # (Auto) 4.8 th/mm3 (1.8-7.7); Neut % (Auto) 76.9 % (16.0-70.0); Platelet Count 139 th/mm3 (150-450); Red Blood Count 2.89 mil/mm3 (4.00-5.30); Red Cell Distribution Width 16.4 % (11.6-17.2); White Blood Count 6.3 th/mm3 (4.0-11.0)
[2018-04-15 06:49] LABS: Calcium 8.9 mg/dL (8.5-10.1); Carbon Dioxide 25.4 meq/L (21.0-32.0); Magnesium 1.8 mg/dL (1.5-2.5)
[2018-04-15] MEDS: Insulin NovoLOG Aspart Correctional Sugar Inj SQ SCH ×4 (07:32→20:34)
[2018-04-15] MEDS ORDERED: Potassium Chloride 25 MEQ Effervescent Tablet PO ONE (07:35)
[2018-04-15] MEDS ORDERED: Potassium Chlor 10 mEq Premix 10 MEQ/100 ML PIGGYBACK IV.SIG ONE (07:36)
[2018-04-15] MEDS: Thiamine Inj 100 MG in Sodium Chlor 0.9% Inj 100 ML IV.SIG SCH (08:58)
[2018-04-15] MEDS: amLODIPine 5 MG Tablet PO SCH (09:00)
[2018-04-15] MEDS: Folic Acid 1 MG Tablet PO SCH (09:00)
[2018-04-15] MEDS: Aspirin 325 MG Tablet PO SCH (09:00)
[2018-04-15] MEDS: Famotidine 20 MG Tablet PO SCH ×2 (09:00→21:29)
[2018-04-15] MEDS: Multivitamin/Minerals Therapeutic Tablet PO SCH (09:00)
[2018-04-15 10:01] LABS: Ovalocytes 1+; Platelet Estimate Normal (Normal); Platelet Morphology Normal (Normal); Tear Drop Cells 1+
--- NOTE | 2018-04-15 10:10 | P.PNNEU ---
Subjective Subjective Comments: No cp, no dyspnea, no lott, no focal weakness, no vision loss Active Medications: Active Medications Amlodipine Besylate (Norvasc) 5 mg PO DAILY [facility] Last Admin: 04/15/18 09:00 Dose: 5 mg Aspirin (Aspirin) 325 mg PO DAILY [facility] Last Admin: 04/15/18 09:00 Dose: 325 mg Dextrose (D50w Vial) 50 ml IV.PUSH UNSCH PRN PRN Reason: PER HYPOGLYCEMIA PROTOCOL Enalaprilat (Vasotec Inj) 1.25 mg IV.PUSH Q4H PRN PRN Reason: For SBP > 220 or DBP > 120 Famotidine (Pepcid) 20 mg PO BID [facility] Last Admin: 04/15/18 09:00 Dose: 20 mg Flumazenil (Romazecon Inj) 0.2 mg IV.PUSH Q1M PRN PRN Reason: OVERSEDATION Folic Acid (Folic Acid) 1 mg PO DAILY [facility] Stop: 04/18/18 08:59 Last Admin: 04/15/18 09:00 Dose: 1 mg Glucagon (Glucagon Inj) 1 mg OTHER UNSCH PRN PRN Reason: for Hypoglycemia Protocol Haloperidol Lactate (Haldol Inj) 1 mg IV.PUSH Q15M PRN PRN Reason: for severe agitation Sodium Chloride (Ns Inj) 1,000 mls @ 70 mls/hr IV.CONT .[id number] [facility] Last Admin: 04/14/18 21:36 Dose: Not Given Thiamine HCl 100 mg/ Sodium (Chloride) 101 mls @ 100 mls/hr IV.SIG DAILY [facility] Stop: 04/16/18 08:59 Last Infusion: 04/15/18 10:03 Dose: Infused Insulin Aspart (Novolog Insulin Correctional Sugar Inj) 0 unit SQ ACHS [facility]; Protocol Last Admin: 04/15/18 07:32 Dose: Not Given Lorazepam (Ativan) 1 mg PO Q4H PRN PRN Reason: for CIWA 8-10 Last Admin: 04/14/18 19:52 Dose: 1 mg Lorazepam (Ativan) 2 mg PO Q2H PRN PRN Reason: for CIWA 11-14 Lorazepam (Ativan Inj) 2 mg IV.PUSH Q2H PRN PRN Reason: for CIWA 11-14 Lorazepam (Ativan Inj) 2 mg IV.PUSH Q1H PRN PRN Reason: for CIWA 15-20 Lorazepam (Ativan Inj) 2 mg IV.PUSH Q15M PRN PRN Reason: for CIWA > 20 Lorazepam (Ativan Inj) 1 mg IV.PUSH Q4H PRN PRN Reason: for CIWA 8-10 Last Admin: 04/14/18 07:19 Dose: 1 mg Multivitamins/Minerals (Theragran-M) 1 tab PO DAILY [facility] Stop: 04/18/18 08:59 Last Admin: 04/15/18 09:00 Dose: 1 tab Sodium Chloride (Ns Flush) 2 ml IV.FLUSH BID [facility] Last Admin: 04/15/18 09:14 Dose: 2 ml Sodium Chloride (Ns Flush) 2 ml IV.FLUSH PRN PRN PRN Reason: FLUSH AFTER USING IV ACCESS Last Admin: 04/13/18 08:16 Dose: 2 ml Thiamine HCl (Vitamin B1) 100 mg PO DAILY [facility] Allergies/Adverse Reactions: Allergies Allergy/AdvReac Type Severity Reaction Status Date / Time Sulfa (Sulfonamide Allergy Unknown Rash, Verified 04/14/18 10:57 Antibiotics) Generalized Review of Systems All other systems reviewed negative except as stated in HPI Physical Exam Vital signs: Vital Signs 04/14/18 11:50 04/14/18 16:00 04/14/18 17:38 Temperature 98.4 F 98 F 97.8 F Pulse Rate 90 81 79 Respiratory Rate 20 20 18 Blood Pressure 194/86 H 175/81 H Pulse Oximetry 96 93 L 97 04/14/18 20:00 04/14/18 21:46 04/14/18 21:50 Temperature 97.6 F Pulse Rate 96 H 84 Respiratory Rate 20 Blood Pressure 188/88 H Pulse Oximetry 97 97 04/15/18 00:00 04/15/18 04:00 04/15/18 08:00 Temperature 97.8 F 98.1 F 97.9 F Pulse Rate 94 H 82 82 Respiratory Rate 20 20 18 Blood Pressure 151/71 H 166/81 H 172/79 H Pulse Oximetry 96 97 97 Intake & Output 04/14/18 04/15/18 04/15/18 18:59 06:59 18:59 Intake Total 1601 / 1601 300 / 300 101 / 101 Output Total 600 / 600 750 / 750 Balance 1001 / 1001 -450 / -450 101 / 101 Weight 55.3 kg Intake: IV 1001 / 1001 NS Inj 1,000 ML @ 70 mls/hr IV. 900 / 900 CONT .[id number] [facility] Rx#:[id number] Thiamine Inj 100 MG In NS Inj 100 ML @ 100 mls/hr IV.SIG DAILY [facility] Rx#:[id number] Oral 600 / 600 300 / 300 Output: Urine 600 / 600 750 / 750 Other: # Urine Diapers 2 Date of Last Bowel Movement 04/13/18 Narrative: GENERAL: in NAD, SKIN: Warm and dry. HEAD: Atraumatic. Normocephalic. EYES: Pupils equal and round. No scleral icterus. NECK: Trachea midline. No JVD. CARDIOVASCULAR: Regular rate and rhythm. RESPIRATORY: No accessory muscle use. GASTROINTESTINAL: Abdomen soft, non-tender, nondistended. MUSCULOSKELETAL: Extremities without clubbing, cyanosis, or edema. No obvious deformities. NEUROLOGICAL: Awake and alert. Oriented 2-3. Not to month or exact a new the year able name the current president issues and [facility] area. Looks comfortable, visual clark grossly full no facial asymmetry, able to move all 4 extremity gravity no nuchal rigidity, mild upper extremity tremor PSYCHIATRIC: Calm pleasant appropriate in conversation - Constitutional no acute distress - Routine HEENT Exam Head: Present: normocephalic Eye: Present: EOMI - Urinary Catheter Management Straight Cath placed during this visit: yes Reason for continuing: Not indwelling catheter Insertion date: 04/13/18 Insertion time: 02:14 Objective Laboratory Results - last 24 hr 04/14/18 04/14/18 04/14/18 10:05 10:05 10:05 WBC 6.6 RBC 2.91 L Hgb 11.9 Hct 33.6 L MCV 115.4 H MCH 40.8 H MCHC 35.4 RDW 16.4 Plt Count 131 L MPV 8.9 Prelim Diff (Auto) Neut % (Auto) 81.6 H Lymph % (Auto) 8.1 L [place] % (Auto) 9.0 H Eos % (Auto) 0.4 Baso % (Auto) 0.9 Neut # (Auto) 5.3 Lymph # (Auto) 0.5 L [place] # (Auto) 0.6 Eos # (Auto) 0.0 Baso # (Auto) 0.1 WBC Differential . Diff Scan Differential Comment Auto diff final Platelet Estimate Platelet Morphology Tear Drop Cells Ovalocytes Sodium 138 Potassium 2.8 L* Chloride 101 Carbon Dioxide 23.7 Anion Gap 13 BUN 10 Creatinine 0.96 Estimated GFR 57 L POC Glucose Random Glucose 91 Hemoglobin A1c 5.2 Calcium 8.7 Magnesium 1.5 Total Bilirubin 1.1 H AST 71 H ALT 53 Alkaline Phosphatase 123 H Total Protein 6.5 Albumin 3.2 L Triglycerides 115 Cholesterol 179 LDL Cholesterol, Calc 82 HDL Cholesterol 74.5 H Cholesterol/HDL Ratio 2.40 04/14/18 04/14/18 04/14/18 10:05 12:04 16:09 WBC RBC Hgb Hct MCV MCH MCHC RDW Plt Count MPV Prelim Diff (Auto) Neut % (Auto) Lymph % (Auto) [place] % (Auto) Eos % (Auto) Baso % (Auto) Neut # (Auto) Lymph # (Auto) [place] # (Auto) Eos # (Auto) Baso # (Auto) WBC Differential Diff Scan Differential Comment Platelet Estimate Platelet Morphology Tear Drop Cells Ovalocytes Sodium Potassium Chloride Carbon Dioxide Anion Gap BUN Creatinine Estimated GFR POC Glucose 115 H 98 Random Glucose Hemoglobin A1c Calcium Magnesium Cancelled Total Bilirubin AST ALT Alkaline Phosphatase Total Protein Albumin Triglycerides Cholesterol LDL Cholesterol, Calc HDL Cholesterol Cholesterol/HDL Ratio 04/15/18 04/15/18 04:31 04:31 WBC 6.3 RBC 2.89 L Hgb 11.4 L Hct 34.2 L MCV 118.4 H MCH 39.6 H MCHC 33.5 RDW 16.4 Plt Count 139 L MPV 9.0 Prelim Diff (Auto) Slide review pending Neut % (Auto) 76.9 H Lymph % (Auto) 11.3 [place] % (Auto) 10.4 H Eos % (Auto) 0.8 Baso % (Auto) 0.6 Neut # (Auto) 4.8 Lymph # (Auto) 0.7 L [place] # (Auto) 0.6 Eos # (Auto) 0.0 Baso # (Auto) 0.0 WBC Differential . Diff Scan Auto diff confirmed Differential Comment . Platelet Estimate Normal Platelet Morphology Normal Tear Drop Cells 1+ H Ovalocytes 1+ H Sodium 140 Potassium 3.0 L Chloride 103 Carbon Dioxide 25.4 Anion Gap 12 BUN 10 Creatinine 0.85 Estimated GFR 66 L POC Glucose Random Glucose 78 Hemoglobin A1c Calcium 8.9 Magnesium 1.8 Total Bilirubin AST ALT Alkaline Phosphatase Total Protein Albumin Triglycerides Cholesterol LDL Cholesterol, Calc HDL Cholesterol Cholesterol/HDL Ratio Microbiology 04/13/18 01:45 Aerobic Blood Culture - Preliminary Blood - Peripheral Staphylococcus coag negative Anaerobic Blood Culture - Preliminary Staphylococcus coag negative 04/13/18 01:40 Aerobic Blood Culture - Preliminary Blood - Peripheral Staphylococcus coag negative Anaerobic Blood Culture - Preliminary Staphylococcus coag negative Review/Management - Diagnosis (1) Encephalopathy acute Code(s): G93.40 - Encephalopathy, unspecified Status: Acute Current Visit: Yes (2) Mood disorder Code(s): F39 - Unspecified mood [affective] disorder Status: Acute Current Visit: Yes (3) HTN (hypertension) Code(s): I10 - Essential (primary) hypertension Status: Acute Current Visit : Yes (4) Alcohol abuse Code(s): F10.10 - Alcohol abuse, uncomplicated Status: Acute Current Visit: Yes - Review/Management Plan: Toxic, metabolic encephalopathy; possibly related to Wernicke encephalopathy, toxic medication ingestion, exclude seizure activity. TIA less likely Urine drug screen negative. Ethanol level in range. No leukocytosis no fever. Symptoms appear secondary to probable ethanol withdrawal with polypharmacy EEG; negative for any seizure activity MRI brain; negative for any acute lesion B12 TSH normal ammonia level normal Recommendation Neuro improved. Improved mental status RPR pending Follow blood cultures; possible contamination Discharge planning after cultures negative Abstain from ethanol intake No driving
--- NOTE | 2018-04-15 10:13 | P.PNIM ---
Subjective Interval history: Follow-up visit ETOH, possible seizure versus CVA, HLD. Patient seen and examined today. Patient is awake and alert, oriented to year, place, name, person Patient is calm and able to follow commands and very responsive. Denies pain and discomfort. Denies SOB/ dyspnea. Denies chest pain, palpitations, headaches, dizziness. Denies fevers, chills, n/v/d. Denies dysuria. Denies diplopia, unilateral weakness. Physical Exam Vital signs: Vital Signs 04/14/18 11:50 04/14/18 16:00 04/14/18 17:38 Temperature 98.4 F 98 F 97.8 F Pulse Rate 90 81 79 Respiratory Rate 20 20 18 Blood Pressure 194/86 H 175/81 H Pulse Oximetry 96 93 L 97 04/14/18 20:00 04/14/18 21:46 04/14/18 21:50 Temperature 97.6 F Pulse Rate 96 H 84 Respiratory Rate 20 Blood Pressure 188/88 H Pulse Oximetry 97 97 04/15/18 00:00 04/15/18 04:00 04/15/18 08:00 Temperature 97.8 F 98.1 F 97.9 F Pulse Rate 94 H 82 82 Respiratory Rate 20 20 18 Blood Pressure 151/71 H 166/81 H 172/79 H Pulse Oximetry 96 97 97 Intake & Output 04/14/18 04/15/18 04/15/18 18:59 06:59 18:59 Intake Total 1601 / 1601 300 / 300 101 / 101 Output Total 600 / 600 750 / 750 Balance 1001 / 1001 -450 / -450 101 / 101 Weight 55.3 kg Intake: IV 1001 / 1001 101 / 101 NS Inj 1,000 ML @ 70 mls/hr IV. 900 / 900 CONT .[id number] [facility] Rx#:[id number] Thiamine Inj 100 MG In NS Inj 101 / 101 101 / 101 100 ML @ 100 mls/hr IV.SIG DAILY [facility] Rx#:[id number] Oral 600 / 600 300 / 300 Output: Urine 600 / 600 750 / 750 Other: # Urine Diapers 2 Date of Last Bowel Movement 04/13/18 Narrative: GENERAL: This is thin appearing elderly, well-developed patient, in no apparent distress. SKIN: Warm and dry. HEENT: Normocephalic. Pupils equal round and reactive. Nose without bleeding. Airway patent. NECK: Trachea midline. CARDIOVASCULAR: Regular rate and rhythm without murmurs, gallops, or rubs. RESPIRATORY: Clear to auscultation. Breath sounds equal bilaterally. No wheezes , rales, or rhonchi. GASTROINTESTINAL: Abdomen soft, non-tender, nondistended. Bowel Sounds normoactive x4. MUSCULOSKELETAL: Extremities without clubbing, cyanosis, or edema. NEUROLOGICAL: Awake and alert. Calm. Oriented 2-3. Normal speech, visual clark grossly full no facial asymmetry, able to move all 4 extremity, no nuchal rigidity. Ambulatory. - Urinary Catheter Management Straight Cath placed during this visit: yes Reason for continuing: Not indwelling catheter Insertion date: 04/13/18 Insertion time: 02:14 Results - Labs CBC & Chem 7: 04/15/18 04:31 04/15/18 04:31 Laboratory Results - last 24 hr 04/14/18 04/14/18 04/14/18 10:05 10:05 10:05 WBC 6.6 RBC 2.91 L Hgb 11.9 Hct 33.6 L MCV 115.4 H MCH 40.8 H MCHC 35.4 RDW 16.4 Plt Count 131 L MPV 8.9 Prelim Diff (Auto) Neut % (Auto) 81.6 H Lymph % (Auto) 8.1 L Yell % (Auto) 9.0 H Eos % (Auto) 0.4 Baso % (Auto) 0.9 Neut # (Auto) 5.3 Lymph # (Auto) 0.5 L Yell # (Auto) 0.6 Eos # (Auto) 0.0 Baso # (Auto) 0.1 WBC Differential . Diff Scan Differential Comment Auto diff final Platelet Estimate Platelet Morphology Tear Drop Cells Ovalocytes Sodium 138 Potassium 2.8 L* Chloride 101 Carbon Dioxide 23.7 Anion Gap 13 BUN 10 Creatinine 0.96 Estimated GFR 57 L POC Glucose Random Glucose 91 Hemoglobin A1c 5.2 Calcium 8.7 Magnesium 1.5 Total Bilirubin 1.1 H AST 71 H ALT 53 Alkaline Phosphatase 123 H Total Protein 6.5 Albumin 3.2 L Triglycerides 115 Cholesterol 179 LDL Cholesterol, Calc 82 HDL Cholesterol 74.5 H Cholesterol/HDL Ratio 2.40 04/14/18 04/14/18 04/14/18 10:05 12:04 16:09 WBC RBC Hgb Hct MCV MCH MCHC RDW Plt Count MPV Prelim Diff (Auto) Neut % (Auto) Lymph % (Auto) Yell % (Auto) Eos % (Auto) Baso % (Auto) Neut # (Auto) Lymph # (Auto) Yell # (Auto) Eos # (Auto) Baso # (Auto) WBC Differential Diff Scan Differential Comment Platelet Estimate Platelet Morphology Tear Drop Cells Ovalocytes Sodium Potassium Chloride Carbon Dioxide Anion Gap BUN Creatinine Estimated GFR POC Glucose 115 H 98 Random Glucose Hemoglobin A1c Calcium Magnesium Cancelled Total Bilirubin AST ALT Alkaline Phosphatase Total Protein Albumin Triglycerides Cholesterol LDL Cholesterol, Calc HDL Cholesterol Cholesterol/HDL Ratio 04/15/18 04/15/18 04:31 04:31 WBC 6.3 RBC 2.89 L Hgb 11.4 L Hct 34.2 L MCV 118.4 H MCH 39.6 H MCHC 33.5 RDW 16.4 Plt Count 139 L MPV 9.0 Prelim Diff (Auto) Slide review pending Neut % (Auto) 76.9 H Lymph % (Auto) 11.3 Yell % (Auto) 10.4 H Eos % (Auto) 0.8 Baso % (Auto) 0.6 Neut # (Auto) 4.8 Lymph # (Auto) 0.7 L Yell # (Auto) 0.6 Eos # (Auto) 0.0 Baso # (Auto) 0.0 WBC Differential . Diff Scan Auto diff confirmed Differential Comment . Platelet Estimate Normal Platelet Morphology Normal Tear Drop Cells 1+ H Ovalocytes 1+ H Sodium 140 Potassium 3.0 L Chloride 103 Carbon Dioxide 25.4 Anion Gap 12 BUN 10 Creatinine 0.85 Estimated GFR 66 L POC Glucose Random Glucose 78 Hemoglobin A1c Calcium 8.9 Magnesium 1.8 Total Bilirubin AST ALT Alkaline Phosphatase Total Protein Albumin Triglycerides Cholesterol LDL Cholesterol, Calc HDL Cholesterol Cholesterol/HDL Ratio Microbiology 04/13/18 01:45 Blood - Peripheral Aerobic Blood Culture - Preliminary Staphylococcus coag negative 04/13/18 01:45 Blood - Peripheral Anaerobic Blood Culture - Preliminary Staphylococcus coag negative 04/13/18 01:40 Blood - Peripheral Aerobic Blood Culture - Preliminary Staphylococcus coag negative 04/13/18 01:40 Blood - Peripheral Anaerobic Blood Culture - Preliminary Staphylococcus coag negative Assessment and Plan - Assessment (1) CVA (cerebral vascular accident) Code(s): I63.9 - Cerebral infarction, unspecified Status: Acute (2) HTN (hypertension) Code(s): I10 - Essential (primary) hypertension Status: Acute (3) Seizure Code(s): R56.9 - Unspecified convulsions Status: Acute (4) Lactic acidosis Code(s): E87.2 - Acidosis Status: Acute (5) Alcohol abuse Code(s): F10.10 - Alcohol abuse, uncomplicated Status: Acute - Plan 72-year-old female with a PMH of HTN, Hyperlipidemia, Anxiety and Alcohol Abuse who was brought to the ER by EMS as a Stroke Alert for aphasia. Sepsis, SIRS R/O Lactic acid elevated Positive blood cultures -Initial Lactic Acid 3.1, likely secondary to dehydration/seizure/ ETOH , no evidence of infection -CXR w/ no acute findings, U/a negative for UTI. -4 bottles of blood culture positive for Staphylococcus coag negative -Repeat blood cultures today, preliminary no growth to date. -We will monitor for now. Patient has no signs and symptoms of infection, afebrile. Does not appear toxic. -No ABX for now. Monitor for now CVA vs toxic metabolic encephalopathy secondary to EtOH -Per review of records spelled to the ED for stroke alert for acute aphasia, previous episode of similar symptoms 2 months ago in [place]. As per she had "TIA." -CT of the head negative -CTA of the head with left MCA perfusion decrease in comparison to right -CTA of the neck negative -EEG negative for seizure activity -MRI white matter atrophic changes. No acute abnormality seen and no abnormal enhancement is noted. -Neurology consulted for further evaluation. -Patient is more awake and alert, coherent with conversation. Admits to ingesting wine daily -Able to get out of bed and ambulate. Calm. HTN -Started on Norvasc, add lisinopril -Vasotec PRN -Monitor BP trend Seizure like activity History of EtOH dependence -Per review of records has been reports seizure-like activity, postictal state with aphasia -now verbal but confused not oriented to self, time, place -Answers questions appropriately when asked regarding symptoms. -Per review of records patient drinks 750 mL bottle of wine daily, last drink was yesterday with 2 glasses of wine. -Seizure precaution. -EEG negative for any seizure activity -[facility] Protocol. -thiamine, folate, multivitamin -Admits to drinking wine daily has been for years. Hyponatremia, mild -Possibly related to alcohol use -Monitor sodium levels Hyperglycemia -Check hemoglobin A1c Macrocytic Anemia -Possible ETOH related -Patient states she gets Vit B12 shots monthly DVT prop SCDs CODE STATUS Full code Discussed with patient, nursing, Dr. Zamorano Discharge Planning: Pending blood cultures final result. Cleared by neurology. Will need home health
--- NOTE | 2018-04-15 11:44 | P.DCO ---
- Diagnosis (1) CVA (cerebral vascular accident) Status: Acute (2) HTN (hypertension) Status: Acute (3) Seizure Status: Acute (4) Lactic acidosis Status: Acute (5) Alcohol abuse Status: Acute - Physical Therapy Order: Evaluate and treat - Home Health Nursing Order: Medical education, Signs/symptoms of disease process - Case Management Consult Case Management Consult-Home Health: Yes - Certification I have seen patient Demetrice Aquino on 04/15/18. My clinical findings support the need for the requested home health care services because: Medication compliance is questionable, Impaired cognition/judgement I certify that my clinical findings support that this patient is homebound because: Impaired cognitive ability/safety, Unsteady gait/balance
[2018-04-15] MEDS: Sod Chloride 0.9% Inj 1,000 ML IV.CONT SCH (12:10)
[2018-04-15] MEDS: Lisinopril 10 MG Tablet PO SCH (14:35)
[2018-04-15 16:31] LABS: Calcium 9.2 mg/dL (8.5-10.1); Carbon Dioxide 23.5 meq/L (21.0-32.0); Potassium 4.1 meq/L (3.5-5.1)
[2018-04-15] MEDS: LORazepam 1 MG Tablet PO PRN (19:21)
[2018-04-16] MEDS: Sod Chloride 0.9% Inj 1,000 ML IV.CONT SCH ×2 (01:06→18:42)
--- NOTE | 2018-04-16 07:40 | P.DS ---
Date of admission: 04/13/18 02:41 Primary care physician: No Primary Care Physician Attending physician on discharge: Yolis Zamorano Anticipated date of discharge: 04/16/18 Brief History from admission: This is a 72-year-old female with a PMH of HTN, Hyperlipidemia, Anxiety and Alcohol Abuse who was brought to the ER by EMS as a Stroke Alert for aphasia. Per at bedside, pt had intermittent episodes of aphasia throughout the day, had recommended eval, however pt refused at that time. Later this evening, notes pt had generalized shaking episode w/ "eyes rolling in back of her head", lasting few minutes, no incontinence. Upon arrival to ER, pt has had significant confusion, and combative requiring restraints. Upon further discussion w/ , he states pt does have h/o Alcohol Abuse, drinks one 750ml bottle of wine daily, yesterday only had 2 glasses of wine. denies h/o seizures, but believes she is "withdrawing". reports pt is prescribed Buspar 5mg 1-2 tablets tid, however she takes approx 45mg throughout the day, states "she's addicted to alcohol and Buspar". Pt currently more awake , speaking, but confused, not answering questions appropriately. reports pt had similar episode of "TIA" but no seizure activity in [place] 2 months ago, states she has been following w/ Neurologist (Dr. Crabtree) in [place] for possible MS. BP 210/118, HR 94, O2 sat 96% on 2L NC, Afebrile. CBC essentially unremarkable except for MCV 115. Platelets 145. INR 1.0. Chemistry unremarkable. Lactic Acid 3.1. Troponin negative. UA negative for UTI. Urine Drug Screen negative. Alcohol negative. CXR unremarkable. CT Head diffuse atrophy. CTA Head w/ left MCA perfusion decreased in comparison to right. CTA Neck w/ no acute stenosis. Patient update on day of discharge: Patient seen and examined today. at bedside. Patient states she is doing well. States that she is ready to go home. states that he is going to take care of her and not can give her any alcoholic drinks. Discussed with patient importance of abstaining from alcohol. Discussed polypharmacy and alcohol use and risk factors. Verbalized understanding. Denies pain and discomfort. Denies SOB/ dyspnea. Denies chest pain, palpitations, headaches, dizziness. Denies fevers, chills, n/v/d. Denies dysuria. DS: Diagnosis - Discharge Diagnosis (1) CVA (cerebral vascular accident) Status: Acute (2) HTN (hypertension) Status: Acute (3) Seizure Status: Acute (4) Lactic acidosis Status: Acute (5) Alcohol abuse Status: Acute DS: Medications - Discharge Medications Prescriptions: amlodipine [Norvasc] 5 mg PO DAILY #30 tab aspirin [Aspir-81] 81 mg PO DAILY #30 tab folic acid 1 mg PO DAILY #30 tab lisinopril 10 mg PO DAILY #30 tab thiamine HCl (vitamin B1) 100 mg PO DAILY #30 tab DS: Summary Hospital Course: 72-year-old female with a PMH of HTN, Hyperlipidemia, Anxiety and Alcohol Abuse who was brought to the ER by EMS as a Stroke Alert for aphasia. Stroke workup has been done with the patient. CT of the head negative. CTA of the head with left MCA perfusion decrease in comparison to the right. CTA of the neck negative. EEG negative for seizure activity. MRI with white matter atrophic change. No acute abnormality seen and no abnormal enhancement is noted. Patient was seen and followed by neurology, Dr. St who deemed possible EtOH withdrawal since patient admitted to drinking a bottle of wine every day. Mental status was altered possibly due to alcohol use and worsened by medication ingestion, possible metabolic encephalopathy, Wernicke encephalopathy. B12, TSH and ammonia levels were all normal. Neurologically patient has significantly improved mental status. Patient also came into the hospital initially with lactic acid of 3.1. Sepsis workup has been done. Chest x-ray with no acute findings, UA negative for urinary tract infection. Initial blood cultures came back with 4 bottles positive for Staphylococcus coag negative. Repeat blood cultures were done preliminary came back no growth in 2 days. This has been extensively discussed with patient and . They need to provide phone numbers that they can be contacted if the final results were abnormal. We will also need to follow-up with her primary care doctor. They have been wanting to go home as she is feeling better, and knows the risk of going home without waiting for the final results of the cultures. Patient does not seem to appear with infection. She has been ambulating the hallways without any difficulty. Mental status has significantly improved. Patient has met maximal benefits of hospitalization. Clinically stable for discharge. - Time Spent with Patient Total time spent providing and/or coordinating discharge services: Less than 30 minutes Exam Vital signs: Vital Signs 04/15/18 08:00 04/15/18 12:00 04/15/18 15:41 Temperature 97.9 F 97.9 F 97.9 F Pulse Rate 82 81 99 H Respiratory Rate 18 Blood Pressure 172/79 H 174/76 H 143/65 H Pulse Oximetry 97 95 98 04/15/18 20:00 04/15/18 21:00 04/16/18 00:00 Temperature 98 F 98 F Pulse Rate 91 H 88 87 Respiratory Rate 20 20 Blood Pressure 114/73 165/74 H Pulse Oximetry 98 98 04/16/18 04:00 Temperature 98.5 F Pulse Rate 79 Respiratory Rate 20 Blood Pressure 136/66 Pulse Oximetry 97 Intake & Output 04/15/18 04/16/18 04/16/18 18:59 06:59 18:59 Intake Total 201 / 201 1600 / 1600 Balance 201 / 201 1600 / 1600 Weight 56 kg Intake: IV 201 / 201 1000 / 1000 NS Inj 1,000 ML @ 70 mls/hr IV. 1000 / 1000 CONT .[id number] [facility] Rx#:[id number] KCl 10 mEq Premix Inj 10 meq In 100 / 100 100 ml @ 100 mls/hr IV.SIG ONCE ONE Rx#:[id number] Thiamine Inj 100 MG In NS Inj 101 / 101 100 ML @ 100 mls/hr IV.SIG DAILY [facility] Rx#:[id number] Oral 600 / 600 Other: # Voids 3 1 Date of Last Bowel Movement 04/13/18 Narrative: GENERAL: This is thin appearing elderly, well-developed patient, in no apparent distress. SKIN: Warm and dry. HEENT: Normocephalic. Pupils equal round and reactive. Nose without bleeding. Airway patent. NECK: Trachea midline. CARDIOVASCULAR: Regular rate and rhythm without murmurs, gallops, or rubs. RESPIRATORY: Clear to auscultation. Breath sounds equal bilaterally. No wheezes , rales, or rhonchi. GASTROINTESTINAL: Abdomen soft, non-tender, nondistended. Bowel Sounds normoactive x4. MUSCULOSKELETAL: Extremities without clubbing, cyanosis, or edema. NEUROLOGICAL: Awake and alert. Calm. Oriented 2-3. Normal speech, visual clark grossly full no facial asymmetry, able to move all 4 extremity, no nuchal rigidity. Ambulatory. Results Procedures completed during hospitalization: none Labs on day of discharge: Labs from last 24 hours 04/15/18 04/15/18 04/13/18 16:00 04:31 14:03 WBC Differential . Diff Scan Auto diff confirmed Platelet Estimate Normal Platelet Morphology Normal Tear Drop Cells 1+ H Ovalocytes 1+ H Sodium 138 Potassium 4.1 D Chloride 104 Carbon Dioxide 23.5 Anion Gap 11 BUN 10 Creatinine 0.98 Estimated GFR 56 L Random Glucose 114 H Calcium 9.2 RPR Nonreactive Preliminary micro results at discharge 04/14/18 15:18 Aerobic Blood Culture - Preliminary Blood - Peripheral No growth in 1 day Anaerobic Blood Culture - Preliminary No growth in 1 day 04/14/18 15:10 Aerobic Blood Culture - Preliminary Blood - Peripheral No growth in 1 day Anaerobic Blood Culture - Preliminary No growth in 1 day 04/13/18 01:45 Aerobic Blood Culture - Preliminary Blood - Peripheral Staphylococcus coag negative Anaerobic Blood Culture - Preliminary Staphylococcus coag negative 04/13/18 01:40 Aerobic Blood Culture - Preliminary Blood - Peripheral Staphylococcus coag negative Anaerobic Blood Culture - Preliminary Staphylococcus coag negative - Impressions ITS Impressions Chest X-Ray 04/13/18 01:28 CONCLUSION: Unremarkable single view the chest. Large hiatal hernia. Head CT 04/13/18 01:28 CONCLUSION: 1. There is diffuse atrophy. No evidence of acute stroke, hemorrhage, mass or mass effect Report was called by [ Dr. Funes to Dr. Louann Schaeffer at 0158 hours] Head CTA 04/13/18 01:28 CONCLUSION: 1. No obvious aneurysm or stenosis. No visible thrombus. The perfusion to the left middle cerebral circulation is decreased compared to the right Report was called by [Dr. Funes to Dr. St at 0224 hrs.] Neck CTA 04/13/18 01:28 CONCLUSION: 1. Eccentric atherosclerotic disease without two-dimensional stenosis Head MRI 04/14/18 00:00 CONCLUSION: 1. White matter atrophic changes. No acute abnormality seen and no abnormal enhancement is noted. Discharge Plan - Discharge Disposition Patient Disposition: 06 Disch W/Home Health Service - Discharge Condition Condition: Stable - Discharge Order Discharge Orders: Discharge Order (Routine); Ordered 04/16/18 Ordered By: Lai Eaton - Physicians Team Primary Care Provider: Primary Care Bryon,Shira Attending Provider: Yolis Zamorano Other Providers: Charli St MD
[2018-04-16] MEDS: Multivitamin/Minerals Therapeutic Tablet PO SCH (08:58)
[2018-04-16] MEDS: Lisinopril 10 MG Tablet PO SCH (08:58)
[2018-04-16] MEDS: amLODIPine 5 MG Tablet PO SCH (08:58)
[2018-04-16] MEDS: Famotidine 20 MG Tablet PO SCH (08:58)
[2018-04-16] MEDS: Aspirin 325 MG Tablet PO SCH (08:59)
[2018-04-16] MEDS: Insulin NovoLOG Aspart Correctional Sugar Inj SQ SCH ×3 (08:59→18:42)
[2018-04-16] MEDS: Folic Acid 1 MG Tablet PO SCH (08:59)
--- NOTE | 2018-04-16 09:29 | P.PNNEU ---
Subjective Subjective Comments: No cp, no dyspnea, no lott, no focal weakness, no vision loss. Spouse at bedside states patient is doing better. Both of agree that she will stop ethanol intake and reduce her intake of BuSpar and Seroquel Active Medications: Active Medications Amlodipine Besylate (Norvasc) 5 mg PO DAILY [facility] Last Admin: 04/16/18 08:58 Dose: 5 mg Aspirin (Aspirin) 325 mg PO DAILY [facility] Last Admin: 04/16/18 08:59 Dose: 325 mg Dextrose (D50w Vial) 50 ml IV.PUSH UNSCH PRN PRN Reason: PER HYPOGLYCEMIA PROTOCOL Enalaprilat (Vasotec Inj) 1.25 mg IV.PUSH Q4H PRN PRN Reason: For SBP > 220 or DBP > 120 Famotidine (Pepcid) 10 mg PO BID [facility] Last Admin: 04/16/18 08:58 Dose: 10 mg Flumazenil (Romazecon Inj) 0.2 mg IV.PUSH Q1M PRN PRN Reason: OVERSEDATION Folic Acid (Folic Acid) 1 mg PO DAILY [facility] Stop: 04/18/18 08:59 Last Admin: 04/16/18 08:59 Dose: 1 mg Glucagon (Glucagon Inj) 1 mg OTHER UNSCH PRN PRN Reason: for Hypoglycemia Protocol Haloperidol Lactate (Haldol Inj) 1 mg IV.PUSH Q15M PRN PRN Reason: for severe agitation Sodium Chloride (Ns Inj) 1,000 mls @ 70 mls/hr IV.CONT .[id number] [facility] Last Infusion: 04/16/18 02:21 Dose: Infused Insulin Aspart (Novolog Insulin Correctional Sugar Inj) 0 unit SQ ACHS [facility]; Protocol Last Admin: 04/16/18 08:59 Dose: Not Given Lisinopril (Prinivil) 10 mg PO DAILY [facility] Last Admin: 04/16/18 08:58 Dose: 10 mg Lorazepam (Ativan) 1 mg PO Q4H PRN PRN Reason: for CIWA 8-10 Last Admin: 04/15/18 19:21 Dose: 1 mg Lorazepam (Ativan) 2 mg PO Q2H PRN PRN Reason: for CIWA 11-14 Lorazepam (Ativan Inj) 2 mg IV.PUSH Q2H PRN PRN Reason: for CIWA 11-14 Lorazepam (Ativan Inj) 2 mg IV.PUSH Q1H PRN PRN Reason: for CIWA 15-20 Lorazepam (Ativan Inj) 2 mg IV.PUSH Q15M PRN PRN Reason: for CIWA > 20 Lorazepam (Ativan Inj) 1 mg IV.PUSH Q4H PRN PRN Reason: for CIWA 8-10 Last Admin: 04/14/18 07:19 Dose: 1 mg Miscellaneous (Pill Splitter) 1 each OTHER PRN PRN PRN Reason: SEE LABEL COMMENTS Multivitamins/Minerals (Theragran-M) 1 tab PO DAILY [facility] Stop: 04/18/18 08:59 Last Admin: 04/16/18 08:58 Dose: 1 tab Sodium Chloride (Ns Flush) 2 ml IV.FLUSH BID [facility] Last Admin: 04/16/18 09:04 Dose: Not Given Sodium Chloride (Ns Flush) 2 ml IV.FLUSH PRN PRN PRN Reason: FLUSH AFTER USING IV ACCESS Last Admin: 04/13/18 08:16 Dose: 2 ml Thiamine HCl (Vitamin B1) 100 mg PO DAILY [facility] Last Admin: 04/16/18 08:59 Dose: 100 mg Allergies/Adverse Reactions: Allergies Allergy/AdvReac Type Severity Reaction Status Date / Time Sulfa (Sulfonamide Allergy Unknown Rash, Verified 04/14/18 10:57 Antibiotics) Generalized Review of Systems All other systems reviewed negative except as stated in HPI Physical Exam Vital signs: Vital Signs 04/15/18 12:00 04/15/18 15:41 04/15/18 20:00 Temperature 97.9 F 97.9 F 98 F Pulse Rate 81 99 H 91 H Respiratory Rate 18 18 20 Blood Pressure 174/76 H 143/65 H 114/73 Pulse Oximetry 95 98 98 04/15/18 21:00 04/16/18 00:00 04/16/18 04:00 Temperature 98 F 98.5 F Pulse Rate 88 87 79 Respiratory Rate 20 20 Blood Pressure 165/74 H 136/66 Pulse Oximetry 98 97 04/16/18 08:00 Temperature 98.4 F Pulse Rate 84 Respiratory Rate 18 Blood Pressure 160/73 H Pulse Oximetry 98 Intake & Output 04/15/18 04/16/18 04/16/18 18:59 06:59 18:59 Intake Total 201 / 201 1600 / 1600 Balance 201 / 201 1600 / 1600 Weight 56 kg Intake: IV 201 / 201 1000 / 1000 NS Inj 1,000 ML @ 70 mls/hr IV. 1000 / 1000 CONT .[id number] [facility] Rx#:[id number] KCl 10 mEq Premix Inj 10 meq In 100 / 100 100 ml @ 100 mls/hr IV.SIG ONCE ONE Rx#:[id number] Thiamine Inj 100 MG In NS Inj 101 / 101 100 ML @ 100 mls/hr IV.SIG DAILY [facility] Rx#:[id number] Oral 600 / 600 Other: # Voids 3 1 Date of Last Bowel Movement 04/13/18 Narrative: GENERAL: This is thin appearing elderly, well-developed patient, in no apparent distress. SKIN: Warm and dry. HEENT: Normocephalic. Pupils equal round and reactive. Nose without bleeding. Airway patent. NECK: Trachea midline. CARDIOVASCULAR: Regular rate and rhythm without murmurs, gallops, or rubs. RESPIRATORY: No accessory muscle use, breathing symmetric GASTROINTESTINAL: Abdomen soft, non-tender, nondistended. Bowel Sounds normoactive x4. MUSCULOSKELETAL: Extremities without clubbing, cyanosis, or edema. NEUROLOGICAL: Awake and alert. Calm. Oriented 2-3. New the month and the year but not the exact date, able name the current president, pleasant appropriate normal speech, visual clark grossly full no facial asymmetry, able to move all 4 extremity, no drift - Constitutional no acute distress - Routine HEENT Exam Head: Present: normocephalic Eye: Present: EOMI - Urinary Catheter Management Straight Cath placed during this visit: yes Reason for continuing: Not indwelling catheter Insertion date: 04/13/18 Insertion time: 02:14 Objective Laboratory Results - last 24 hr 04/13/18 04/15/18 04/15/18 14:03 04:31 16:00 WBC Differential . Diff Scan Auto diff confirmed Platelet Estimate Normal Platelet Morphology Normal Tear Drop Cells 1+ H Ovalocytes 1+ H Sodium 138 Potassium 4.1 D Chloride 104 Carbon Dioxide 23.5 Anion Gap 11 BUN 10 Creatinine 0.98 Estimated GFR 56 L Random Glucose 114 H Calcium 9.2 RPR Nonreactive Microbiology 04/14/18 15:18 Aerobic Blood Culture - Preliminary Blood - Peripheral No growth in 1 day Anaerobic Blood Culture - Preliminary No growth in 1 day 04/14/18 15:10 Aerobic Blood Culture - Preliminary Blood - Peripheral No growth in 1 day Anaerobic Blood Culture - Preliminary No growth in 1 day 04/13/18 01:45 Aerobic Blood Culture - Preliminary Blood - Peripheral Staphylococcus coag negative Anaerobic Blood Culture - Preliminary Staphylococcus coag negative 04/13/18 01:40 Aerobic Blood Culture - Preliminary Blood - Peripheral Staphylococcus coag negative Anaerobic Blood Culture - Preliminary Staphylococcus coag negative Review/Management - Diagnosis (1) Encephalopathy acute Code(s): G93.40 - Encephalopathy, unspecified Status: Acute Current Visit: Yes (2) Mood disorder Code(s): F39 - Unspecified mood [affective] disorder Status: Acute Current Visit: Yes (3) HTN (hypertension) Code(s): I10 - Essential (primary) hypertension Status: Acute Current Visit : Yes (4) Alcohol abuse Code(s): F10.10 - Alcohol abuse, uncomplicated Status: Acute Current Visit: Yes - Review/Management Plan: Toxic, metabolic encephalopathy; possibly related to Wernicke encephalopathy, toxic medication ingestion, exclude seizure activity. TIA less likely Urine drug screen negative. Ethanol level in range. No leukocytosis no fever. Symptoms appear secondary to probable ethanol withdrawal with polypharmacy EEG; negative for any seizure activity MRI brain; negative for any acute lesion B12 TSH normal ammonia level normal Recommendation Neuro improved. Improved mental status RPR-negative Follow blood cultures; possible contamination; repeat preliminary cultures negative Discharge planning after cultures negative Abstain from ethanol intake Can follow-up with us in her PCP in 2-3 weeks time No driving
[2018-04-18 03:52] LABS: DS DNA Ab (Crithidia) NEGATIVE (NEGATIVE)
== END 2018-04-16 13:09 | disposition home health service (06) ==
LOC: NEPC 01:23 → NEDA 02:41 → N05 04:24
PROVIDERS: ADMIT Family Medicine; ATTEND Family Medicine